=== PATIENT | female | born 1990 | race Caucasian/White ===

== ENCOUNTER 2019-05-27 21:17 | Emergency (ER) | payer MEDICAID ==
[2019-05-27 21:38] LABS: #Basophils 0.1 thou/uL (0.0-0.2); #Monocytes 0.7 thou/uL (0.11-0.59); #Neutrophils 8.2 thou/uL (1.40-6.50); %Basophils 0.5 % (0.0-1.0); %Eosinophils 0.2 % (0.0-10.0); %Lymphocytes 25.2 % (21.0-51.0); %Monocytes 5.5 % (0.0-10.0); %Neutrophils 68.6 % (42.0-75.0); Hemoglobin 14.1 g/dL (12.0-16.0); Mean Corpuscular HGB CONC 34.8 g/dL (32.0-36.0); Mean Corpuscular Hemoglobin 30.8 pg (27.0-31.0); Mean Corpuscular Volume 88.4 fL (78.0-98.0); Mean Platelet Volume 8.3 fL (7.4-10.4); Platelet Count 209 thou/uL (130-400); RBC Distribution Width 11.3 % (11.5-14.5); Red Blood Cell (RBC) Count 4.59 mill/uL (4.20-5.40); White Blood Cell (WBC) Count 11.9 thou/uL (4.8-10.8)
[2019-05-27] MEDS ORDERED: Acetaminophen 500 MG TAB ONE (23:29)
[2019-05-27 23:40] LABS: Bacteria/HPF None Seen HPF (None Seen); Bilirubin Negative (Negative); Blood, Urine 1+ (Negative); Clarity Clear (Clear); Glucose, Urine (Dipstick) Normal (Negative); Leukocyte Negative Leu/uL (Negative); Nitrite Negative (Negative); Protein, Urine (Dipstick) Negative (Neg-Trace); RBC/HPF 0-3 HPF (0-3); Squamous Epithelial 0-3 HPF (0-3); Urobilinogen Normal mg/dL (Less than 2); WBC/HPF 0-3 HPF (0-3)
[2019-05-27] MEDS ORDERED: Ondansetron ODT 8 MG TAB ONE (23:45)
--- NOTE | 2019-05-27 23:53 | ULT ---
PELVIC ULTRASOUND: HISTORY: Elevated beta hCG level of 98,990. Pelvic pain/pressure for one day with nausea and vomiting and vagi nal bleeding. TECHNIQUE: Multiple transabdominal sonographic images of the pelvis are obtained. FINDINGS: A fluid collection is seen in the endometrial canal, which does contain a pole. Cardiac Doppler does demonstrate heart tones with a heart rate of 169 beats per minute. A yolk sac is al so visualized. The crown-rump length measures 1.78 cm, which corresponds to a gestational age by ultr asound of 8 weeks and 2 days. There is a small, approximately 1 cm, subchorionic, hypoechoic area, which probably represents a smal l subchorionic hemorrhage. The ovaries are visualized bilaterally and have a normal sonographic appearance with flow documented in each ovary. No free fluid is seen in the cul-de-sac. IMPRESSION: 1. Very small subchorionic hemorrhage, measuring 1 cm. Continued followup is recommended. 2. Single intrauterine gestation with heart tones documented. Gestational age by measurement of the crown-rump length is 8 weeks and 2 days. POS: CHARISMA
== END 2019-05-28 00:36 | disposition home or self-care (01) ==
LOC: ERS 21:17
DX: O20.0 Threatened abortion (principal); O99.89 Other specified diseases and conditions complicating pregnancy, childbirth and the puerperium; R11.0 Nausea; O13.9 Gestational [pregnancy-induced] hypertension without significant proteinuria, unspecified trimester; Z3A.08 8 weeks gestation of pregnancy
CPT/HCPCS: 36415; 76856; 81003; 81015; 84702; 85025; 86900; 86901; 93976

== ENCOUNTER 2019-09-02 02:39 | Inpatient (IN) | payer OTHER, SELFPAY ==
[2019-09-02] MEDS ORDERED: hydrALAZINE 20 MG/ML VIAL SLOW IVP PRN ×3 (03:06→15:48)
[2019-09-02 03:33] LABS: Bacteria/HPF None Seen HPF (None Seen); Bilirubin Negative (Negative); Blood, Urine Negative (Negative); Clarity Clear (Clear); Glucose, Urine (Dipstick) Normal (Negative); Leukocyte Negative Leu/uL (Negative); Nitrite Negative (Negative); Protein, Urine (Dipstick) Negative (Neg-Trace); RBC/HPF 0-3 HPF (0-3); Squamous Epithelial None Seen HPF (0-3); Urobilinogen Normal mg/dL (Less than 2); WBC/HPF 0-3 HPF (0-3)
[2019-09-02] MEDS ORDERED: Morphine 10 MG/ML VIAL ONE (04:06)
[2019-09-02] MEDS ORDERED: Sodium Chloride 0.9% 200 ML ONE (04:15)
[2019-09-02] MEDS ORDERED: Morphine 10 MG/ML VIAL IM SCH (04:15)
[2019-09-02] MEDS ORDERED: Ondansetron PF 4 MG/2 ML Vial IVP SCH (04:15)
[2019-09-02] MEDS ORDERED: Morphine 10 MG/ML VIAL SLOW IVP SCH (04:15)
--- NOTE | 2019-09-02 05:27 | PRG ---
DATE OF SERVICE: 09/02/2019 PRIMARY OB: Dr. Shey Goetz. CHIEF COMPLAINT: Abdominal pains. HISTORY OF PRESENT ILLNESS: The patient is a 29-year-old with a G4, P2 with an intrauterine at 21 weeks and a day, followed by Dr. Cuenca, who is presenting to Labor and Delivery with abdominal pains that began yesterday as light and intermittent that have progressed to waking her up at night. She reports that she has felt the pain as frequently as every 5 to 6 minutes. She also reports that she has had a little bit of bloody show. Her past surgical history is significant for two LEEP procedures that she has had in the last couple of years since her last baby was born. The patient denies any recent fever, fall, headache, chest pain, shortness of breath, or chest pain. The patient does report some shortness of breath that she has, mainly difficulty catching her breath. Denies nausea, vomiting, diarrhea, constipation, hip problems, knee problems, or muscle weakness. Denies any new rashes. Reports that she gets bacterial vaginosis and urinary tract infections. She was last treated with metronidazole about 3 weeks ago. She denies any current discharge except for this little bit of brown discharge she has had in the last day. The patient denies any urinary urgency or frequency. PAST MEDICAL HISTORY: Significant for abnormal Pap smear. PAST SURGICAL HISTORY: She has had two LEEP procedures and 2 prior C-sections. ALLERGIES: NO KNOWN DRUG ALLERGIES. MEDICATIONS: vitamins. SOCIAL HISTORY: Denies drug, alcohol, or tobacco use. ALLERGIES: NO KNOWN DRUG ALLERGIES. OB LABS: Unavailable at the time of dictation. REVIEW OF SYSTEMS: Per HPI. PHYSICAL EXAMINATION: VITAL SIGNS: Blood pressure 133/82, heart rate of 95, respiratory rate of 16, and temperature 98.4. GENERAL: She appears to be in no acute distress. She is alert, oriented, cooperative, and pleasant to interact with. HEENT: Head is normocephalic and atraumatic. LUNGS: Clear to auscultation bilaterally. HEART: Has a regular rate and rhythm. ABDOMEN: Gravid, soft, and nontender. EXTREMITIES: Nontender, nonedematous. She has no CVA tenderness. No vertebral tenderness. No SI joint tenderness. PELVIC: Vulva is without masses, lesions, or erythema. Vagina is moist. She does have a little bit very minimal amount of old bloody show, mucousy. Cervix is visibly closed, difficult to identify due to her 2 prior procedures, but the cervical os is visible. On digital exam, the cervix is closed and feels to be firm. No presenting part palpable. heart tones that were unable to be found on Doppler. Bedside ultrasound, which was ordered for cervical length and placental site, confirmed that there were no heart tones. Fetus is measuring 18 weeks and 4 days by femur length, which is almost 3 weeks from her due date. BLOOD TYPE: Previous blood type shows A positive. ASSESSMENT AND PLAN: The patient is a 29-year-old female with an intrauterine at 21 weeks by gestational age, 18 weeks and 4 days by femur length without any heart tones. This unfortunate news has been shared with the patient and father of the baby. We have not discussed anything further than that at this point. We will discuss with the patient the options of proceeding with induction today , going home and preparing and following up with her primary OB. The patient is having some intermittent pains at this time, but no clear evidence of labor. addendum 0630 pt having more significant pains. concerned she is entering labor. Pt has expressed a desire to go home to see her daughter before proceeding with iol/ augmentation of labor. I have advised against it given the amount of pain she appears to be experiencing. Waiting on her decision before contacting Dr Goetz. Job ID: [id number] MTDD
[2019-09-02] MEDS ORDERED: NS / Oxytocin 40 units/1000ml 1,000 ML IV PRN (06:35)
[2019-09-02] MEDS ORDERED: Lidocaine 1% (PF) 30 ML VIAL SC PRN (06:35)
[2019-09-02] MEDS ORDERED: Butorphanol Tartrate 1 MG/ML VIAL SLOW IVP PRN (06:35)
[2019-09-02] MEDS ORDERED: Ondansetron PF 4 MG/2 ML Vial IVP PRN ×3 (06:35→15:48)
[2019-09-02] MEDS ORDERED: HYDROcodone/Acetaminophen 5/325 mg Tablet PO PRN (06:35)
[2019-09-02] MEDS ORDERED: Ibuprofen 800 MG TAB PO PRN (06:35)
[2019-09-02] MEDS ORDERED: Lactated Ringer's 1,000 ML IV SCH (06:45)
[2019-09-02 06:47] LABS: Hemoglobin 14.5 g/dL (12.0-16.0); Mean Corpuscular HGB CONC 34.7 g/dL (32.0-36.0); Mean Corpuscular Hemoglobin 32.4 pg (27.0-31.0); Mean Corpuscular Volume 93.3 fL (78.0-98.0); Mean Platelet Volume 8.5 fL (7.4-10.4); Platelet Count 191 thou/uL (130-400); RBC Distribution Width 11.7 % (11.5-14.5); Red Blood Cell (RBC) Count 4.47 mill/uL (4.20-5.40); White Blood Cell (WBC) Count 15.9 thou/uL (4.8-10.8)
[2019-09-02] MEDS ORDERED: Fentanyl 4 mcg/Bup 0.1% Cadd 100 ML ONE ×2 (07:26→13:02)
--- NOTE | 2019-09-02 07:39 | ULT ---
PRELIMINARY REPORT/[facility]/EMERGENCY AFTER HOURS PROCEDURE: Exam: Transabdominal OB ultrasound. History: HX: VAG BLEEDING AT 21WKS PREG. SEE NOTES ON LAST IMAGE. DR. OSMAN AT BEDSIDE. Comparison: None. Findings: Intrauterine is present. Estimated gestational age is 17 weeks and 4 days. Ther e is no cardiac activity. Cervix measures 1.7 cm in length. Impression: demise. ELECTRONICALLY SIGNED BY: Aminata Bae MD Sep 02, 2019 5:11:55 AM CDT This report is intended for review by the ordering physician only, in accordance of law. If you recei ve this report in error, please call [facility] at [phone]. FINAL REPORT EMERGENCY AFTER HOURS LIMITED TRANSABDOMINAL OB ULTRASOUND: I agree with the preliminary report given by [facility]. POS: FINESSE
[2019-09-02] MEDS: Fentanyl 4 mcg/Bupivacaine 0.1% Cassette 100 ML EPIDURAL SCH ×2 (07:51→13:08)
[2019-09-02 07:55] VITALS: BMI 29.0
[2019-09-02] MEDS ORDERED: EPHEDRINE 25 MG/5 ML SYRINGE SLOW IVP PRN (07:56)
[2019-09-02] MEDS ORDERED: diphenhydrAMINE 50 MG/ML VIAL IVP PRN (07:56)
[2019-09-02] MEDS ORDERED: Promethazine HCl 25 MG/ML VIAL IM PRN ×2 (07:56→15:48)
[2019-09-02] MEDS ORDERED: Naloxone HCl 0.4 mg/ml Vial IVP PRN ×2 (07:56)
[2019-09-02] MEDS ORDERED: Lactated Ringer's 500 ML IV PRN (07:56)
[2019-09-02] MEDS ORDERED: Acetaminophen 325 MG TAB PO PRN (07:56)
[2019-09-02] MEDS ORDERED: Communication Order-Pharmacy FS SCH (08:00)
[2019-09-02] MEDS: Misoprostol 100 MCG TAB VAG SCH ×2 (08:49→12:23)
[2019-09-02] MEDS: Lactated Ringer's 1,000 ML IV SCH ×2 (09:47→11:35)
[2019-09-02] MEDS ORDERED: Misoprostol 200 MCG TAB VAG SCH (15:00)
[2019-09-02] MEDS ORDERED: Misoprostol 200 MCG TAB ONE (15:09)
--- NOTE | 2019-09-02 15:47 | PDOC.OPDEL ---
OB Operative/Delivery Note Delivery Dr/Surgeon: Ricky Pre-Delivery Diagnosis: medically indicated induction Procedure/Post Delivery Dx: spontaneous vaginal delivery Weeks gestation: 21 Anesthesia: epidural - Findings A Sex: male Weight: 2.998 oz - 1 min: 0 - 5 min: 0 - Additional Findings/Plan Placenta delivered: manual removal Repaired Obstetrical Laceration: none Estimated blood loss: 620ml Compilations/Other Findings: Appears approximately 18 weeks, no gross abnormalities Placenta removed manually due to bleeding and pain. Appears intact. Post delivery plan: routine recovery
[2019-09-02] MEDS ORDERED: Zolpidem Tartrate 5 MG TAB PO PRN (15:48)
[2019-09-02] MEDS ORDERED: Varicella virus, LIVE 0.5 ML VIAL SC ONE (15:48)
[2019-09-02] MEDS ORDERED: Misoprostol 200 MCG TAB VAG PRN (15:48)
[2019-09-02] MEDS ORDERED: Preparation H Ointment 28 GM TUBE PR PRN (15:48)
[2019-09-02] MEDS ORDERED: Bisacodyl 10 MG SUPP PR PRN (15:48)
[2019-09-02] MEDS ORDERED: Measles/Mumps/Rubella 10 MCG/0.5 ML VIAL SC ONE (15:48)
[2019-09-02] MEDS ORDERED: diphenhydrAMINE 25 MG CAP PO PRN (15:48)
[2019-09-02] MEDS ORDERED: Adacel (T-DAP) 0.5 ML SYRINGE IM ONE (15:48)
[2019-09-02] MEDS ORDERED: Milk Of Magnesia 30 ML UDCUP PO PRN (15:48)
[2019-09-02] MEDS ORDERED: Methylergonovine 0.2 MG/ML VIAL IM PRN (15:48)
[2019-09-02] MEDS ORDERED: Benzocaine-Menthol 82.5 ML CAN TOP PRN (15:48)
[2019-09-02] MEDS ORDERED: NS / Oxytocin 40 units/1000ml 1,000 ML IV SCH (16:00)
[2019-09-02] MEDS ORDERED: Ferrous Sulfate 325 MG TAB PO SCH (17:00)
[2019-09-02] MEDS ORDERED: Docusate Calcium (SURFAK) 240 MG CAP PO SCH (21:00)
[2019-09-02] MEDS ORDERED: Ibuprofen 800 MG TAB PO SCH (22:00)
[2019-09-03] MEDS ORDERED: Prenatal Vitamin 1 TAB PO SCH (09:00)
== END 2019-09-02 19:45 | disposition home or self-care (01) | DRG 807 ==
LOC: L&D/OP 02:39 → L&D 07:27
PROVIDERS: ADMIT Obstetrics & Gynecology; ATTEND Obstetrics & Gynecology
PROC: 10E0XZZ Delivery of Products of Conception, External Approach (ICD-10-PCS; principal; 2019-09-02)
DX: O36.4XX0 Maternal care for intrauterine death, not applicable or unspecified (principal); Z37.1 Single stillbirth; Z3A.21 21 weeks gestation of pregnancy
CPT/HCPCS: 36415; 76815; 81001; 85027; 86850; 86900; 86901; J0595; J2270; J2405; J3490

== ENCOUNTER 2019-09-06 14:21 | Emergency (ER) | payer OTHER ==
[2019-09-06] MEDS ORDERED: Lorazepam 2 MG/ML VIAL ONE ×3 (14:38→17:13)
[2019-09-06] MEDS ORDERED: Ondansetron PF 4 MG/2 ML Vial ONE (14:38)
[2019-09-06] MEDS ORDERED: Fentanyl 100 MCG/2 ML VIAL ONE (14:46)
[2019-09-06 14:52] LABS: #Basophils 0.1 thou/uL (0.0-0.2); #Eosinphils 0.1 thou/uL (0.0-0.7); #Lymphocytes 3.5 thou/uL (1.20-3.40); #Monocytes 0.5 thou/uL (0.11-0.59); #Neutrophils 6.4 thou/uL (1.40-6.50); %Basophils 1.3 % (0.0-1.0); %Eosinophils 0.7 % (0.0-10.0); %Lymphocytes 33.2 % (21.0-51.0); %Monocytes 4.5 % (0.0-10.0); %Neutrophils 60.3 % (42.0-75.0); Hemoglobin 12.1 g/dL (12.0-16.0); Mean Corpuscular HGB CONC 34.5 g/dL (32.0-36.0); Mean Corpuscular Hemoglobin 32.1 pg (27.0-31.0); Mean Platelet Volume 7.7 fL (7.4-10.4); Platelet Count 250 thou/uL (130-400); RBC Distribution Width 11.2 % (11.5-14.5); Red Blood Cell (RBC) Count 3.75 mill/uL (4.20-5.40); White Blood Cell (WBC) Count 10.5 thou/uL (4.8-10.8)
[2019-09-06 15:03] LABS: ALT (SGPT) 12 U/L (8-55); AST (SGOT) 14 U/L (5-34); Albumin 4.2 g/dL (3.5-5.0); Alkaline Phosphatase 56 U/L (40-110); Anion Gap 15 mmol/L (10-20); BUN (Urea Nitrogen) 9 mg/dL (7.0-18.7); Bilirubin, Total 0.2 mg/dL (0.2-1.2); Calc. Creatinine Clearance 0 mL/min (70-130); Calcium 9.2 mg/dL (7.8-10.44); Carbon Dioxide 19 mmol/L (22-29); Chloride 111 mmol/L (98-107); Estimated GFR-MDRD Greater than 90; Glucose 110 mg/dL (70-105); Lipase 23 U/L (8-78); Protein, Total 7.2 g/dL (6.0-8.3); Sodium 141 mmol/L (136-145)
[2019-09-06 15:21] LABS: Bacteria/HPF None Seen HPF (None Seen); Bilirubin Negative (Negative); Blood, Urine 2+ (Negative); Clarity Clear (Clear); Glucose, Urine (Dipstick) Normal (Negative); Leukocyte Negative Leu/uL (Negative); Nitrite Negative (Negative); Protein, Urine (Dipstick) Negative (Neg-Trace); Squamous Epithelial 0-3 HPF (0-3); Urobilinogen Normal mg/dL (Less than 2); WBC/HPF 0-3 HPF (0-3)
[2019-09-06] MEDS ORDERED: Morphine 4 MG/ML VIAL ONE ×2 (15:36→16:30)
--- NOTE | 2019-09-06 15:57 | ULT ---
ULTRASOUND PELVIS DOPPLER DUPLEX: 09/06/19 at 3:04 p.m. HISTORY: 29-year-old female status post spontaneous at six month gestation approximately five days ag o, presents with lower abdominal/pelvic pain. TECHNIQUE: Transabdominal transducer used to evaluate intrapelvic contents using lopez scale, color flow and spec tral analysis. A transvaginal ultrasound was not performed, because of patient's degree of pain. FINDINGS: Uterus measures approximately 9 x 7 x 10.5 cm. Endometrial stripe is difficult to identify with certa inty. The estimate clerk has measured it as 1.8 cm (18 mm). Peripheral myometrial blood flow demonstrated by Doppler. Neither the right nor left ovary could be visualized. No significant free fluid is identified around the uterus, including in the cul-de-sac. IMPRESSION: 1. Ovaries not visualized. 2. Enlarged, uterus. 3. No free fluid identified. POS: JIN
--- NOTE | 2019-09-06 18:40 | ULT ---
ULTRASOUND PELVIC TRANSVAGINAL: 09/06/19 HISTORY: Pain. Miscarriage. COMPARISON: Ultrasound same day. FINDINGS: Uterus is enlarged measuring 11.8 x 5.4 x 8.5 cm. The endometrial thickness is approximately 1.7 cm. Right ovary measures 3 x 1.6 x 1.3 cm. Adequate vascular flow. Left ovary is not visualized. There is minimal debris within the endometrial cavity but does not have significant vascular flow. IMPRESSION: Nonvisualization of the left ovary. Normal appearance right ovary. POS: HOME
[2019-09-06] MEDS ORDERED: Ketorolac Tromethamine 30 MG/ML VIAL ONE (19:04)
== END 2019-09-06 19:20 | disposition home or self-care (01) ==
LOC: ERS 14:21
DX: R10.30 Lower abdominal pain, unspecified (principal); R14.0 Abdominal distension (gaseous)
CPT/HCPCS: 76856; 76857; 80053; 81003; 81015; 83605; 83690; 85025; 93005; 96361; 96374; 96375; 96376; J1885; J2060; J2270; J2405; J3010

== ENCOUNTER 2019-09-06 23:13 | Observation (INO) | payer OTHER ==
[~2019-09-06 23:13] MED LIST: Iopamidol 370 76% 100 ML VIAL ONE
[2019-09-07] MEDS ORDERED: Lorazepam 2 MG/ML VIAL SLOW IVP PRN (00:40)
[2019-09-07 00:51] VITALS: TEMP 98; BMI 29.2
[2019-09-07] MEDS ORDERED: Ketorolac Tromethamine 30 MG/ML VIAL IVP SCH (01:15)
[2019-09-07] MEDS ORDERED: Promethazine HCl 25 MG in Sodium Chloride 0.9% 50 ML IVPB PRN (01:29)
[2019-09-07] MEDS ORDERED: Calcium Carbonate 500 MG ChewTAB PO PRN (01:30)
[2019-09-07] MEDS ORDERED: Ondansetron PF 4 MG/2 ML Vial IVP PRN (01:30)
[2019-09-07] MEDS ORDERED: Ondansetron ODT 4 MG TAB PO PRN (01:30)
[2019-09-07] MEDS ORDERED: Acetaminophen 500 MG TAB PO PRN (01:35)
--- NOTE | 2019-09-07 01:41 | PDOC.BPN ---
- Brief Progress Note CT results with no obvious source of acute process. CBC, CMP, UA all unremarkable. Vitals stable. Pain likely worsened by grieving state. I offered to give a dose of ativan prior to a dose of toradol, and the patient became hysterical, stating that she is in too much pain and she just wants to be able to take a breath. "Those medications do nothing" for her and the medications she received in the ER earlier today barely made the pain bearable and she wanted to "sign the papers" to go home. After evaluation of what she received in the ER, I noted she received a total of 8mg morphine, 3mg ativan, 75mcg of fentanyl, and 30mg of toradol. After a lengthy discussion stating that if she is in that much pain, I would prefer to keep her for observation and would be willing to try a dose of something different. She agrees to stay for further observation. At this point, she will be placed on obs and given a single dose of demerol and phenergan for pain to allow her to rest. She will also get a dose of Ativan. We will continue to monitor overnight and reassess her CBC and exam in the morning.
[2019-09-07] MEDS ORDERED: Promethazine HCl 25 MG in Sodium Chloride 0.9% 50 ML IVPB SCH (02:00)
--- NOTE | 2019-09-07 05:51 | HP ---
CHIEF COMPLAINT: Abdominal pain. HISTORY OF PRESENT ILLNESS: A 29-year-old G4, P2-0-1-2, who is 4 days status post 18-week miscarriage. She reports a sudden onset of diffuse abdominal pain starting after the of her fetus today. She was seen in the emergency department and had an ultrasound, which showed normal changes in the uterus, a normal right ovary and nonvisualized left ovary with no free fluid. She was offered a CT scan at that time, but opted to go home with pain medicine and come back if it worsened. She reports the pain did worsen, so she came back and was sent here for evaluation. She denies any changes in bowel habits, or urination. PAST SURGICAL HISTORY: Prior LEEP x2 and 2 prior C-sections. ALLERGIES: NO KNOWN DRUG ALLERGIES. MEDICATIONS: 1. vitamin. 2. Ibuprofen. SOCIAL HISTORY: Negative for tobacco, alcohol, or drug abuse. PHYSICAL EXAMINATION: VITAL SIGNS: Blood pressure 146/85, pulse 86, temperature 98.0, respiratory rate 14, and 100% on room air. GENERAL: Awake, alert, sobbing, and appears very uncomfortable. CHEST: Nonlabored. ABDOMEN: Diffusely tender to palpation with voluntary guarding but no rebound. No masses palpated. PELVIC: Mild discomfort on bimanual exam, limited due to patient discomfort. IMAGING: Ultrasound earlier today revealed a 1.7 cm endometrial stripe. No retained products of conception. Right ovary normal appearing with adequate vascular flow. Left ovary not visualized. CT scan, formal result pending, but unofficially unremarkable. LABORATORIES: WBC 10.5, hemoglobin 12.1, hematocrit 34.9, platelets 250,000, and neutrophils 60.3%. Lactic acid 1.3. AST 14, ALT 12, and lipase 23. ASSESSMENT/PLAN: A 29-year-old G4, P2-0-1-2 four days status post 18 week in utero with no findings on imaging to support an acute process. She remains afebrile and has a normal white count with no left shift. It is possible that her response is secondary grieving and anxiety after the of her fetus today. She will be given 1 mg of Ativan and we will continue to monitor at this time. Job ID: [id number] [facility]
[2019-09-07 06:41] VITALS: BP 148/85
--- NOTE | 2019-09-07 08:04 | CT ---
PRELIMINARY REPORT/[facility]/EMERGENCY AFTER HOURS PROCEDURE: EXAM: CT Abdomen and Pelvis with Intravenous Contrast CLINICAL HISTORY: PT GAVE ON MONDAY, BABY . PT REPORTS CRAMPING, BLEEDING, AND SEVERE LOWER ABDOMINAL PAIN TECHNIQUE: Axial computed tomography images of the abdomen and pelvis with intravenous contrast. CONTRAST: With; ISOVUE 370,100mL COMPARISON: None provided. FINDINGS: LUNG BASES: No basilar airspace consolidation or pleural effusion. LIVER: Unremarkable. GALLBLADDER AND BILE DUCTS: Unremarkable. No calcified stone. No ductal dilation. PANCREAS: Unremarkable. SPLEEN: Unremarkable. ADRENAL GLANDS: Unremarkable. KIDNEYS, URETERS, AND BLADDER: Unremarkable. No hydronephrosis or nephrolithiasis. No ureteral or rodri dder calculi. STOMACH AND BOWEL: No obstruction. No wall thickening. No CT evidence of colitis or acute diverticuli tis. APPENDIX: The appendix appears normal. PERITONEUM: No free fluid. No free air. LYMPH NODES: No lymphadenopathy. REPRODUCTIVE: Small amount of fluid within the uterine cavity. VASCULATURE: No aortic aneurysm. BONES: No fracture or suspicious osseous abnormality. ABDOMINAL WALL AND SOFT TISSUES: Unremarkable. IMPRESSION: Small amount of fluid within the uterine cavity. ELECTRONICALLY SIGNED BY: Eduar Oliveros MD Sep 07, 2019 12:48:49 AM CDT This report is intended for review by the ordering physician only, in accordance of law. If you recei ve this report in error, please call [facility] at [phone]. FINAL REPORT ABDOMEN AND PELVIC CT SCAN WITH IV CONTRAST EMERGENCY AFTER HOURS EXAM DATE: 09-07-2019 TIME: 12:33 A.M. FINDINGS: Enlarged recent post uterus with slightly prominent endometrial cavity. Several borderline siz ed fluid filled loops of small bowel are noted but no evidence for a bowel obstruction. No abnormal f luid collection or other acute process in the abdomen or pelvis. Normal appearing appendix. IMPRESSION: Post-operative recent changes. No other acute process.
[2019-09-07 08:47] LABS: Hemoglobin 10.7 g/dL (12.0-16.0); Mean Corpuscular HGB CONC 34.2 g/dL (32.0-36.0); Mean Corpuscular Volume 93.7 fL (78.0-98.0); Mean Platelet Volume 7.6 fL (7.4-10.4); Platelet Count 180 thou/uL (130-400); RBC Distribution Width 11.2 % (11.5-14.5); Red Blood Cell (RBC) Count 3.35 mill/uL (4.20-5.40); White Blood Cell (WBC) Count 7.4 thou/uL (4.8-10.8)
--- NOTE | 2019-09-07 10:09 | PDOC.EVN ---
Event Note - Event Note Event Note: OB oncall lab check: As per my check out this am at 0800, I was tasked with following up the lab result from this AM CBC. This CXBC was normal. If labs were normal, that was to result in DC to home as per Dr García who saw the patient prior to my hand-off for shift. I have reviewed the lab now with Ella (RN). CBC ok, OK for DC as planned. This was lab check only as I did not see her at bedside as I am prepping for a CSection at this time.
[2019-09-07 10:19] LABS: Lymphocytes 24 % (21-51); MDiff Complete? YES; Monocytes 12 % (0-10); Neutrophil 63 % (42-75); Platelet Morphology Comment Appears Adequate
--- NOTE | 2019-09-07 10:29 | DIS ---
DATE OF ADMISSION: 09/07/2019 DATE OF DISCHARGE: 09/07/2019 The admitting physician on 09/07/[address] Frannie García. HOSPITAL COURSE: In brief, this patient was admitted on 09/07/2019 with a complaint of abdominal pain. The patient is a 29-year-old, G4, P 2-0-1-2, who is about 4 days' status post an 18-week miscarriage. She had a vaginal delivery of that , and she came in after the of the child with abdominal pain, NOS. It was thought that this was either a new organic finding or could be a conversion reaction due to the grief response. She received Ativan for agitation control. She did have a CT scan performed on 09/06/2019, which did not reveal any abnormal changes. It is important to note that the impression on that CT shows "postoperative recent changes." However, the patient did not have a . She had a vaginal delivery. The patient was evaluated by Dr. García, who felt that there was no new organic etiology of the patient's pain and this likely represented abnormal manifestation of a grief reaction/possible conversion syndrome. She did discuss with the patient that she would check another CBC on the morning of the (which I have checked) and it was normal. The plan was to discharge her home. I have checked the CBC. I evaluated the CBC at 10 in the morning on 09/06 and noting that it was normal. I resumed the plan for discharge of her home. FINAL DIAGNOSES: The post admission final diagnosis includes: 1. Status post recent second trimester delivery. 2. Possible grief reaction. 3. Possible conversion reaction. 4. She has her followup with her provider as scheduled. It is important to note that I did not evaluate the patient. I did not evaluate the patient this admission. I am doing the discharge dictation as I ordered the discharge after confirming a normal CBC. I did not evaluate the patient as I felt that it would not add anything clinically to the evaluation already performed, and the patient was clinically well and stable. Job ID: [id number] MTDD
== END 2019-09-07 11:05 | disposition home health service (06) ==
LOC: ERS 23:13 → L&D/OP 23:47 → L&D 09-07 06:28
PROVIDERS: ADMIT Student in an Organized Health Care Education/Training Program; ATTEND Student in an Organized Health Care Education/Training Program
DX: R10.9 Unspecified abdominal pain (principal)
CPT/HCPCS: 36415; 74177; 85007; 85027; 96374; 96375; 99285; G0378; J2175; J2550; Q9967

== ENCOUNTER 2019-12-05 18:11 | Emergency (ER) | payer OTHER ==
[2019-12-05 18:44] LABS: #Basophils 0.1 thou/uL (0.0-0.2); #Lymphocytes 2.4 thou/uL (1.20-3.40); #Monocytes 0.4 thou/uL (0.11-0.59); #Neutrophils 7.3 thou/uL (1.40-6.50); %Basophils 0.5 % (0.0-1.0); %Eosinophils 0.3 % (0.0-10.0); %Lymphocytes 23.4 % (21.0-51.0); %Monocytes 4.2 % (0.0-10.0); %Neutrophils 71.5 % (42.0-75.0); Hemoglobin 13.6 g/dL (12.0-16.0); Mean Corpuscular HGB CONC 33.5 g/dL (32.0-36.0); Mean Corpuscular Hemoglobin 29.9 pg (27.0-31.0); Mean Corpuscular Volume 89.3 fL (78.0-98.0); Mean Platelet Volume 8.4 fL (7.4-10.4); Platelet Count 203 thou/uL (130-400); RBC Distribution Width 12.1 % (11.5-14.5); Red Blood Cell (RBC) Count 4.57 mill/uL (4.20-5.40); White Blood Cell (WBC) Count 10.2 thou/uL (4.8-10.8)
[2019-12-05 19:29] LABS: Bilirubin Negative (Negative); Blood, Urine Negative (Negative); Clarity Clear (Clear); Glucose, Urine (Dipstick) Normal (Negative); Ketone, Urine Negative (Negative); Leukocyte Negative Leu/uL (Negative); Nitrite Negative (Negative); Protein, Urine (Dipstick) Negative (Neg-Trace); Specific Gravity, Urine 1.008 (1.002-1.036); Urobilinogen Normal mg/dL (Less than 2); pH, Urine 5.5 (5.0-9.0)
--- NOTE | 2019-12-05 21:06 | ULT ---
PELVIC ULTRASOUND: 12/05/19 Transabdominal and endovaginal ultrasound of pelvis performed. INDICATIONS: Follow-up pelvic ultrasound from 12/02/19. That exam revealed a gestational sac and yolk sac without f etal pole. FINDINGS: Gestational sac again noted. Yolk sac is identified. No pole is identified. No heart tone or motion seen at this time. Gestational age by ultrasound measurements would be 6 week, 2 days. Both ovaries are identified. Color Doppler and spectral analysis demonstrates blood flow to both ovar ies. There are two right ovarian cysts with the largest measuring approximately 2.5 to 3.0 cm. IMPRESSION: Gestational sac and yolk sac again identified. No evidence of pole. Correlate with serial HCG l evels to assess viability. POS: AGW
[2019-12-05] MEDS ORDERED: Acetaminophen 500 MG TAB ONE (21:24)
== END 2019-12-05 21:57 | disposition home or self-care (01) ==
LOC: ERS 18:11
DX: O20.0 Threatened abortion (principal); O99.341 Other mental disorders complicating pregnancy, first trimester; F32.9 Major depressive disorder, single episode, unspecified; Z3A.01 Less than 8 weeks gestation of pregnancy
CPT/HCPCS: 36415; 76856; 81003; 84702; 85025; 86900; 86901

== ENCOUNTER 2020-01-13 11:36 | Emergency (ER) | payer OTHER ==
[2020-01-13] MEDS ORDERED: Ondansetron ODT 4 MG TAB ONE (12:05)
[2020-01-13] MEDS ORDERED: Ondansetron PF 4 MG/2 ML Vial ONE (12:07)
[2020-01-13] MEDS ORDERED: Acetaminophen 500 MG TAB ONE (12:50)
[2020-01-13 12:57] LABS: #Lymphocytes 1.8 thou/uL (1.20-3.40); #Monocytes 0.4 thou/uL (0.11-0.59); #Neutrophils 7.9 thou/uL (1.40-6.50); %Basophils 0.1 % (0.0-1.0); %Eosinophils 0.3 % (0.0-10.0); %Lymphocytes 17.9 % (21.0-51.0); %Monocytes 3.9 % (0.0-10.0); %Neutrophils 77.9 % (42.0-75.0); Hemoglobin 13.5 g/dL (12.0-16.0); Mean Corpuscular HGB CONC 35.2 g/dL (32.0-36.0); Mean Corpuscular Hemoglobin 31.2 pg (27.0-31.0); Mean Corpuscular Volume 88.8 fL (78.0-98.0); Platelet Count 189 thou/uL (130-400); RBC Distribution Width 12.8 % (11.5-14.5); Red Blood Cell (RBC) Count 4.31 mill/uL (4.20-5.40); White Blood Cell (WBC) Count 10.1 thou/uL (4.8-10.8)
[2020-01-13 13:27] LABS: ALT (SGPT) Less than 7 U/L (8-55); AST (SGOT) 11 U/L (5-34); Albumin 2.9 g/dL (3.5-5.0); Alkaline Phosphatase 40 U/L (40-110); Anion Gap 10 mmol/L (10-20); BUN (Urea Nitrogen) Less than 4 mg/dL (7.0-18.7); Bilirubin, Total 0.2 mg/dL (0.2-1.2); Calc. Creatinine Clearance 0 mL/min (70-130); Calcium 6.7 mg/dL (7.8-10.44); Carbon Dioxide 17 mmol/L (22-29); Chloride 116 mmol/L (98-107); Estimated GFR-MDRD Greater than 90; Globulin 2.2 g/dL (2.4-3.5); Glucose 74 mg/dL (70-105); Protein, Total 5.1 g/dL (6.0-8.3); Sodium 140 mmol/L (136-145)
[2020-01-13 13:43] LABS: Potassium 2.9 mmol/L (3.5-5.1)
[2020-01-13 13:53] LABS: Bilirubin Negative (Negative); Blood, Urine Negative (Negative); Clarity Clear (Clear); Glucose, Urine (Dipstick) Normal (Negative); Ketone, Urine Negative (Negative); Leukocyte Negative Leu/uL (Negative); Nitrite Negative (Negative); Protein, Urine (Dipstick) Negative (Neg-Trace); Specific Gravity, Urine 1.006 (1.002-1.036); Urobilinogen Normal mg/dL (Less than 2)
--- NOTE | 2020-01-13 13:55 | ULT ---
PELVIC ULTRASOUND WITH SALEH SCALE AND COLOR FLOW AND SPECTRAL DOPPLER IMAGING: Date: 01/13/2020 HISTORY: Abdominal cramping and vaginal bleeding. FINDINGS: Uterus measures 13.6 x 10.3 x 6.8 cm. Right ovary measures 5.2 x 4.6 x 3.4 cm. Left ovary is not visualized. There is a 4.1 x 2.8 x 2.7 cm cyst arising from the right ovary. Flow is demonstrated through the right ovary. A single, live intrauterine gestation is seen, with measurements corresponding to an estimated gestat ional age of 12 weeks and 6 days and RAMONE at 07/22/2020. The crown-rump length measures 6.41 cm. The heart rate measures 160 beats/minute. There is suggestion of a small amount of subchorionic hemorrhage. An anterior placenta is present with partial placenta previa, with placenta tip incompletely covering the internal os. IMPRESSION: 1. Single, live intrauterine of 12 weeks and 5 days estimated gestational age, and RAMONE at 07/22/2020. 2. Probable small subchorionic hemorrhage. 3. Partial placenta previa. POS: MZA
[2020-01-14 16:01] LABS: SARS-CoV-2 MS2 Positive; SARS-CoV-2 N Gene Negative; SARS-CoV-2 S Gene Negative; SARS-CoV-2 by NAA Not Detected (NotDetected); SARS-CoV-2 orf1ab Negative
== END 2020-01-13 15:05 | disposition home or self-care (01) ==
LOC: ERS 11:36
DX: O21.9 Vomiting of pregnancy, unspecified (principal); O99.281 Endocrine, nutritional and metabolic diseases complicating pregnancy, first trimester; O99.341 Other mental disorders complicating pregnancy, first trimester; F32.9 Major depressive disorder, single episode, unspecified; Z3A.12 12 weeks gestation of pregnancy
CPT/HCPCS: 76856; 80053; 81003; 85025; 87635; 96361; 96374; J2405; Q0162; U0003

== ENCOUNTER 2020-02-11 14:59 | Observation (INO) | payer OTHER ==
[~2020-02-11 14:59] MED LIST changes: -Iopamidol 370 76% 100 ML VIAL ONE; +Iopamidol-370 76% 500 ML 1 ML ONE
[2020-02-11 15:40] LABS: #Lymphocytes 2.3 thou/uL (1.20-3.40); #Monocytes 0.5 thou/uL (0.11-0.59); #Neutrophils 8.7 thou/uL (1.40-6.50); %Basophils 0.3 % (0.0-1.0); %Eosinophils 0.3 % (0.0-10.0); %Lymphocytes 19.8 % (21.0-51.0); %Neutrophils 75.5 % (42.0-75.0); Hemoglobin 13.5 g/dL (12.0-16.0); Mean Corpuscular HGB CONC 34.2 g/dL (32.0-36.0); Mean Corpuscular Hemoglobin 30.8 pg (27.0-31.0); Mean Corpuscular Volume 90.1 fL (78.0-98.0); Mean Platelet Volume 8.1 fL (7.4-10.4); Platelet Count 202 thou/uL (130-400); RBC Distribution Width 12.6 % (11.5-14.5); Red Blood Cell (RBC) Count 4.39 mill/uL (4.20-5.40); White Blood Cell (WBC) Count 11.6 thou/uL (4.8-10.8)
[2020-02-11 16:01] LABS: ALT (SGPT) 10 U/L (8-55); AST (SGOT) 13 U/L (5-34); Albumin 3.9 g/dL (3.5-5.0); Alkaline Phosphatase 52 U/L (40-110); Anion Gap 13 mmol/L (10-20); BUN (Urea Nitrogen) 5 mg/dL (7.0-18.7); Bilirubin, Total 0.2 mg/dL (0.2-1.2); Calc. Creatinine Clearance 0 mL/min (70-130); Carbon Dioxide 17 mmol/L (22-29); Chloride 109 mmol/L (98-107); Estimated GFR-MDRD Greater than 90; Glucose 100 mg/dL (70-105); Potassium 3.8 mmol/L (3.5-5.1); Protein, Total 6.9 g/dL (6.0-8.3); Sodium 135 mmol/L (136-145)
--- NOTE | 2020-02-11 16:08 | ULT ---
EXAM: OB ultrasound COMPARISON: 01/13/2020 HISTORY: Left lower quadrant abdominal pain in a patient with positive . TECHNIQUE: Multiplanar grayscale and color Doppler transabdominal sonographic images are obtained. FINDINGS: There is a single intrauterine gestation in breech presentation. Cardiac Doppler demonstrat es heart tones with a heart rate of 144 beats per minute. The placenta is located anteriorly without evidence of placenta previa. There subjectively, there is a normal amount of amnio tic fluid. The cervical length based on transabdominal imaging measures 3.5 centimeters. biometry measurements: BPD 3.21 cm -- 16 weeks HC 12.56 cm -- 16 weeks 2 days AC 11.27 cm -- 17 weeks 1 day FL 2.25 cm -- 16 weeks 5 days The estimated gestational age by ultrasound is 16 weeks 2 days with an RAMONE on07/26/2020. Gestational ag e by the last menstrual period is 16 weeks 3 days. The estimated weight by ultrasound is 171 g (6 ounces). This represents 70 percentile for weight. anatomical structures are not well evaluated on this examination due to early intrauterine gest ational age. There has been interval growth when compared to the prior exam. There is limited evaluation of the adnexal regions due to shadowing from bowel gas. Ovaries are unabl e to be visualized. Imaging left lower quadrant was performed in region of pain, again there is limited evaluation due to shadowing from bowel gas. IMPRESSION: 1. Single intrauterine gestation in breech presentation with heart tones documented. Estimated gestational age by ultrasound is 16 weeks 2 days with RAMONE on 07/26/2020. 2. Estimated weight is 171 g (6 ounces). 3. Adnexal regions and left lower quadrant in region of patient's pain are not well assessed due to s hadowing from bowel gas.
[2020-02-11 16:17] LABS: Bilirubin Negative (Negative); Blood, Urine Negative (Negative); Clarity Clear (Clear); Glucose, Urine (Dipstick) Normal (Negative); Ketone, Urine Negative (Negative); Leukocyte Negative Leu/uL (Negative); Nitrite Negative (Negative); Protein, Urine (Dipstick) Negative (Neg-Trace); Specific Gravity, Urine 1.007 (1.002-1.036); Urobilinogen Normal mg/dL (Less than 2)
[2020-02-11] MEDS ORDERED: Morphine 4 MG/ML VIAL ONE ×3 (17:01→22:34)
[2020-02-11] MEDS ORDERED: Ondansetron PF 4 MG/2 ML Vial ONE (17:28)
[2020-02-11] MEDS ORDERED: Fentanyl 100 MCG/2 ML VIAL ONE ×3 (18:08→23:59)
[2020-02-11] MEDS ORDERED: Lorazepam 2 MG/ML VIAL ONE (20:18)
--- NOTE | 2020-02-11 21:21 | CT ---
CT ABDOMEN AND PELVIS WITH IV CONTRAST: 02/11/20 PROVIDED CLINICAL HISTORY: Left lower quadrant tenderness with guarding. FINDINGS: Comparison 09/07/19. The visualized lung bases are free of significant opacity. The liver, spleen, pancreas, kidneys, and adrenal glands demonstrate an unremarkable CT appearance. There is no bowel dilatation, inflammatory fat stranding, free fluid or free air apparent. The append ix appears normal. The regional major vascular structures appear unremarkable. Gravid uterus is noted. The osseous struc tures demonstrate no concerning lytic or blastic lesions. IMPRESSION: No evidence for an acute process. POS: CELESTINO
[2020-02-11] MEDS ORDERED: diphenhydrAMINE 50 MG/ML VIAL ONE (23:59)
--- NOTE | 2020-02-12 00:27 | PDOC.FPRHP ---
- History of Present Illness Chief Complaint: Abdominal pain History of Present Illness: Patient is a 29 yo who presents at 16.3 (16.4 at time of note) wga by LMP c/w first trimester US who presents to the ED for abdominal pain. The patient reports that the pain began Monday night. It originally improved with rest but become worse throughout the day on Monday (02/10). She reports that she attempted taking tylenol and laying down without any relief. Due to a recent loss at 21 wga in August, she decided to come to the hospital. Patient reports history of kidney stones in prior pregnancies. Patient endorses N/V, pain with urination. Reports that she noticed some blood with wiping that she believes is coming from her urethra. Of note, patient has recently finished antibiotic course for recently diagnosed BV. Denies fever/chills, diarrhea/constipation, headache. ED Course: CBC, CMP, UA, pelvic US, & pelvic CT withing normal limits. Adnexa not able to be assessed during US due to presence of gas. 8mg of IV morphine, 100mcg IV fentanyl, 8mg of Zofran Given fentanyl and benadryl during admission process - Allergies/Adverse Reactions Allergies Allergy/AdvReac Type Severity Reaction Status Date / Time No Known Allergies Allergy Verified 09/07/19 00:51 - Home Medications Medication Instructions Recorded Confirmed Type Acetaminophen [Tylenol Regular 650 mg PO Q4H PRN tab 09/02/19 Rx Strength] Ibuprofen [Motrin] 800 mg PO Q8HR PRN #30 tab 09/02/19 09/07/19 Rx Terbinafine [LamISIL] 1 tab PO DAILY 09/02/19 09/07/19 History Sertraline HCl 1 mg PO QAM 09/07/19 09/07/19 History - History PMHx: Depression/anxiety, CASSI III PSHx: x2, Leep x2, cone biopsy, humeral fracture repair FHx: mother - HTN, unknown heart condition Social: denies tobacco, alcohol, drug use; lives with and two children - Review of Systems General: reports: weight/appetite/sleep changes. denies: fever/chills Eyes: denies: eye pain, vision changes ENT: denies: nasal congestion, rhinorrhea Respiratory: denies: cough, congestion, shortness of breath Cardiovascular: denies: chest pain, edema Gastrointestinal: reports: nausea, vomiting, abdominal pain. denies: diarrhea, constipation Genitourinary: reports: dysuria, polyuria Skin: denies: rashes, lesions Musculoskeletal: denies: pain, tenderness Neurological: denies: numbness, syncope Psychological: reports: anxiety, depression - Vital signs BP: 111/75 HR: 81 RR: 15 Tmax: 98.5 Pox: 97% on RA Wt: 81 kg - Physical Exam Constitutional: awake, alert and oriented HEENT: normocephalic and atraumatic, grossly normal vision, grossly normal hearing, oropharynx clear Neck: supple, FROM Heart: RRR, normal S1/S2, no murmurs/rubs/gallops Lungs: CTAB, no respiratory distress Abdomen: soft, bowel sounds present, no masses/distention -Abdomen: Tender to palpation in LUQ and LLQ; no rebound, guarding noted; CVA tenderness bilaterally with left greater than right Musculoskeletal: normal structure, normal tone Neurological: no focal deficit, CN II-XII intact Skin: no rash/lesions, no jaundice Heme/Lymphatic: no unusual bruising or bleeding, no purpura Psychiatric: normal mood and affect, good judgment and insight, intact recent and remote memory FMR H&P: Results - Labs Result Diagrams: 02/11/20 15:30 02/11/20 15:30 Lab results: WBC 11.6 thou/uL (4.8-10.8) H 02/11/20 15:30 Hgb 13.5 g/dL (12.0-16.0) 02/11/20 15:30 Hct 39.6 % (36.0-47.0) 02/11/20 15:30 MCV 90.1 fL (78.0-98.0) 02/11/20 15:30 Plt Count 202 thou/uL (130-400) 02/11/20 15:30 Neutrophils % 75.5 % (42.0-75.0) H 02/11/20 15:30 Sodium 135 mmol/L (136-145) L 02/11/20 15:30 Potassium 3.8 mmol/L (3.5-5.1) 02/11/20 15:30 Chloride 109 mmol/L (98-107) H 02/11/20 15:30 Carbon Dioxide 17 mmol/L (22-29) L 02/11/20 15:30 BUN 5 mg/dL (7.0-18.7) L 02/11/20 15:30 Creatinine 0.55 mg/dL (0.6-1.1) L 02/11/20 15:30 Glucose 100 mg/dL (70-105) 02/11/20 15:30 Calcium 9.0 mg/dL (7.8-10.44) 02/11/20 15:30 Total Bilirubin 0.2 mg/dL (0.2-1.2) 02/11/20 15:30 AST 13 U/L (5-34) 02/11/20 15:30 ALT 10 U/L (8-55) 02/11/20 15:30 Alkaline Phosphatase 52 U/L (40-110) 02/11/20 15:30 Serum Total Protein 6.9 g/dL (6.0-8.3) 02/11/20 15:30 Albumin 3.9 g/dL (3.5-5.0) 02/11/20 15:30 Urine Ketones Negative mg/dL (Negative) 02/11/20 15:55 Urine Blood Negative (Negative) 02/11/20 15:55 Urine Nitrite Negative (Negative) 02/11/20 15:55 Ur Leukocyte Esterase Negative Pema/uL (Negative) 02/11/20 15:55 - Radiology Interpretation US - abdomen Additional comment: sIUP in breech presentation with estimated gestational age by US 16.2 with RAMONE of 07/26/2020; estimated weight of 171 g; adnexal regions and LLQ in region of patient's pain not well assessed. CT scan - abdomen Additional comment: No evidence of acute process FMR H&P: A/P - Problem List (1) Intrauterine Current Visit: Yes Status: Acute Code(s): Z34.90 - ENCNTR FOR SUPRVSN OF NORMAL , UNSP, UNSP TRIMESTER (2) Abdominal pain Current Visit: Yes Status: Acute Code(s): R10.9 - UNSPECIFIED ABDOMINAL PAIN (3) Anxiety Current Visit: Yes Status: Chronic Code(s): F41.9 - ANXIETY DISORDER, UNSPECIFIED (4) Depression Current Visit: Yes Status: Chronic Code(s): F32.9 - MAJOR DEPRESSIVE DISORDER, SINGLE EPISODE, UNSPECIFIED - Plan 29 yo @ 16.4 wga by LMP c/w first trimester US Abdominal pain likely 2/2 to kidney stones vs. round ligament pain vs. ovarian torsion - patient received multiple medications for pain in the ED including 8mg of IV m orphine, 100mcg IV fentanyl, 8mg zofran - patient recently given fentanyl and benadryl - will continue to monitor patient's pain - if pain does not resolve, will try stadol - consider repeat US to reevaluate for ovarian torsion as first US was unable to assess left adnexa - zofran PRN sIUP - US on admission c/w RAMONE of 07/25/2020 and weight of 171 g with heart tones - continue PNV - consider starting aspirin due to reported pre-e in previous Depression/Anxiety - continue home medication of Sertraline - Atarax prn PCP: TAMP Fluids: LR @ 150 Diet: Regular PPx: SCDs Code: FULL Dispo: will admit to medical for observation; likely LOS < 48 hours FMR H&P: Upper Level - Plan Date/Time: 02/12/20 0027 ISandy, have evaluated this patient and agree with findings/plan as outlined by consultants intern resident. Pertinent changes/additions are listed here. 29YO @ 16.3 WGA by LMP c/w dating sono (5 weeks per patient) who presenting to the ED with a CC of severe LLQ pain. Report the pain is sharp in character and fluctuates in occurrence and intensity. Reports improvement with pressure over the area but no known exacerbating factors. Reports associated N/V and some slight dysuria and hematuria she noted today while wiping. No associated fever/chills or diarrhea. Has a h/o kidney stones with her last but states this pain is worse than that. On arrival to the ED her vitals were WNLs. Workup including a CBC, CMP, UA, pelvic US, & pelvic CT were unremarkable. However, after receiving 8mg of IV morphine, 100mcg IV fentanyl & 8mg of Zofran, the patient was still reported 8/10 pain and was therefore admitted for intractable abdominal pain 2/2 MSK pain vs. ovarian torsion vs. psychogenic pain. Just prior to admission, the patient was given 50mcg of fentanyl again with 25mg of Benadryl. Will assess if this regimen helps & if so will continue, if not will try stadol. Will also consider obtaining a repeat pelvic US to assess adnexal region as well since the initial sono could not evaluate it. Will continue PRN Zofran for nausea. Will continue home meds for , anxiety/depression and shingles. Addendum - Attending - Attending Attestation Date/Time: 02/12/20 0030 I personally evaluated the patient and discussed the management with Dr. Spence/Jose. I agree with the History, Examination, Assessment and Plan documented above with any addition or exceptions noted below. 29-year-old At approximate 16.3 weeks gestation based on US performed in ER who presents with a 1-2 day history of intermittent but worsening left flank and left lower quadrant pain. Patient states that she again experienced the pain yesterday but was able to sleep and noticed that it resolved. Pain returned today and became progressively more severe. Patient states she was concerned as she had a 20 week miscarriage in August of this year that started similarly. She also reports a history of kidney stones. She has had 2 prior C-sections and 2 LEEPs for CASSI-3.Patient stated pain is comparable to prior kidney stones.Patient states morphine and fentanyl have helped very little with her pain. Exam was remarkable for left lower quadrant and Left worse than right CVA tenderness. No rebound, guarding, rigidity noted.Laboratory evaluation was negative. CT abdomen with contrast was negative. Pelvic ultrasound was unremarkable and showed approximate 17 week fetus with heart tones. Adnexa were unable to be evaluated due to bowel gas. Admit for intractable abdominal pain likely secondary Nephrolithiasis. We will continue when necessary fentanyl. Will start IV fluids at 150 mL/h. Frequently reassess pain. If she continues to have pain consider repeat pelvic ultrasound to better visualize adnexa and rule out ovarian torsion. ER doctor has spoken with on-call CANNERY WORKER hospitalist per report. Observation, medical, less than 2 midnights.
[2020-02-12] MEDS ORDERED: Ondansetron ODT 4 MG TAB PO PRN (02:22)
[2020-02-12] MEDS ORDERED: Lactated Ringer's 1,000 ML IV SCH (02:22)
[2020-02-12] MEDS ORDERED: Ondansetron PF 4 MG/2 ML Vial IVP PRN (02:22)
[2020-02-12] MEDS: Butorphanol Tartrate 1 MG/ML VIAL SLOW IVP PRN ×3 (02:54→20:05)
[2020-02-12 05:59] LABS: #Lymphocytes 2.1 thou/uL (1.20-3.40); #Monocytes 0.6 thou/uL (0.11-0.59); %Basophils 0.2 % (0.0-1.0); %Eosinophils 0.2 % (0.0-10.0); %Monocytes 5.5 % (0.0-10.0); %Neutrophils 76.1 % (42.0-75.0); Hemoglobin 11.3 g/dL (12.0-16.0); Mean Corpuscular HGB CONC 33.5 g/dL (32.0-36.0); Mean Corpuscular Hemoglobin 30.5 pg (27.0-31.0); Mean Platelet Volume 8.5 fL (7.4-10.4); Platelet Count 169 thou/uL (130-400); RBC Distribution Width 12.7 % (11.5-14.5); Red Blood Cell (RBC) Count 3.71 mill/uL (4.20-5.40); White Blood Cell (WBC) Count 11.8 thou/uL (4.8-10.8)
[2020-02-12 06:15] LABS: Anion Gap 11 mmol/L (10-20); BUN (Urea Nitrogen) 4 mg/dL (7.0-18.7); Calc. Creatinine Clearance 0 mL/min (70-130); Calcium 8.4 mg/dL (7.8-10.44); Carbon Dioxide 22 mmol/L (22-29); Chloride 108 mmol/L (98-107); Estimated GFR-MDRD Greater than 90; Glucose 89 mg/dL (70-105); Potassium 3.9 mmol/L (3.5-5.1); Sodium 137 mmol/L (136-145)
--- NOTE | 2020-02-12 06:44 | PDOC.OBAPN ---
FMR OB AP PN: Sub - Interval History Hospital Day: 1 Chief Complaint: Abdominal Pain Indentification: 29 yo at 16.4 wga by LMP c/w first trimester US Interval History: Pain improved with stadol, now returning, radiates to RUQ and back FMR OB AP PN: Obj - Maternal Vital signs: BP: 127/59 HR: 81 RR: 20 Tmax: 98.4 Pox: 100% on RA Wt: 80.739 kg FMR OB AP PN: Exam - Physical Exam General: NAD, awake, alert and oriented HEENT: normocephalic and atraumatic, EOMI Heart: RRR, normal S1/S2 General: CTAB, no respiratory distress Abdomen: soft, bowel sound present, no masses Deviation from normal: LLQ tenderness over inguinal canal region Deviation from normal: L CVA tenderness, TTP over lumbar spine & L piriformis, L FABR + FMR OB AP PN: Data - Labs Lab results: Laboratory Results - last 24 hr 02/11/20 02/11/20 02/11/20 15:30 15:30 15:30 WBC 11.6 H RBC 4.39 Hgb 13.5 Hct 39.6 MCV 90.1 MCH 30.8 MCHC 34.2 RDW 12.6 Plt Count 202 MPV 8.1 Neutrophils % 75.5 H Lymphocytes % 19.8 L Monocytes % 4.0 Eosinophils % 0.3 Basophils % 0.3 Neutrophils # 8.7 H Lymphocytes # 2.3 Monocytes # 0.5 Eosinophils # 0.0 Basophils # 0.0 Sodium 135 L Potassium 3.8 Chloride 109 H Carbon Dioxide 17 L Anion Gap 13 BUN 5 L Creatinine 0.55 L Estimated GFR (MDRD) Greater than 90 Glucose 100 Calcium 9.0 Total Bilirubin 0.2 AST 13 ALT 10 Alkaline Phosphatase 52 Serum Total Protein 6.9 Albumin 3.9 Globulin 3.0 Albumin/Globulin Ratio 1.3 Total Beta HCG 78716.11 H Urine Color Urine Clarity Urine pH Ur Specific [place] Urine Protein Urine Glucose (UA) Urine Ketones Urine Blood Urine Nitrite Urine Bilirubin Urine Urobilinogen Ur Leukocyte Esterase Blood Type 02/11/20 02/11/20 02/12/20 15:55 16:27 05:44 WBC RBC Hgb Hct MCV MCH MCHC RDW Plt Count MPV Neutrophils % Lymphocytes % Monocytes % Eosinophils % Basophils % Neutrophils # Lymphocytes # Monocytes # Eosinophils # Basophils # Sodium 137 Potassium 3.9 Chloride 108 H Carbon Dioxide 22 Anion Gap 11 BUN 4 L Creatinine 0.57 L Estimated GFR (MDRD) Greater than 90 Glucose 89 Calcium 8.4 Total Bilirubin AST ALT Alkaline Phosphatase Serum Total Protein Albumin Globulin Albumin/Globulin Ratio Total Beta HCG Urine Color Colorless Urine Clarity Clear Urine pH 6.0 Ur Specific [place] 1.007 Urine Protein Negative Urine Glucose (UA) Normal Urine Ketones Negative Urine Blood Negative Urine Nitrite Negative Urine Bilirubin Negative Urine Urobilinogen Normal Ur Leukocyte Esterase Negative Blood Type A POSITIVE 02/12/20 05:44 WBC 11.8 H RBC 3.71 L Hgb 11.3 L Hct 33.7 L MCV 91.0 MCH 30.5 MCHC 33.5 RDW 12.7 Plt Count 169 MPV 8.5 Neutrophils % 76.1 H Lymphocytes % 18.0 L Monocytes % 5.5 Eosinophils % 0.2 Basophils % 0.2 Neutrophils # 9.0 H Lymphocytes # 2.1 Monocytes # 0.6 H Eosinophils # 0.0 Basophils # 0.0 Sodium Potassium Chloride Carbon Dioxide Anion Gap BUN Creatinine Estimated GFR (MDRD) Glucose Calcium Total Bilirubin AST ALT Alkaline Phosphatase Serum Total Protein Albumin Globulin Albumin/Globulin Ratio Total Beta HCG Urine Color Urine Clarity Urine pH Ur Specific [place] Urine Protein Urine Glucose (UA) Urine Ketones Urine Blood Urine Nitrite Urine Bilirubin Urine Urobilinogen Ur Leukocyte Esterase Blood Type FMR OB AP PN: A/P Discussion: Date/Time: 02/12/20 0643 29 yo @ 16.4 wga by LMP c/w first trimester US Abdominal pain likely 2/2 to muscle spasm vs kidney stones vs. round ligament pain vs. ovarian torsion - Pain control difficult to achieve on admission, appeared to resolve with Stadol - Official read for 2nd US pending - zofran PRN - based on PE in AM, concern for piriformis syndrome vs other gluteal/pelvic muscle abnormalities - Valium 5 mg for muscle relaxation - will try to have DO colleague see her to perform osteopathic maneuvers sIUP - US on admission c/w RAMONE of 07/25/2020 and weight of 171 g with heart tones - continue PNV - consider starting aspirin due to reported pre-e in previous , will hold for now Depression/Anxiety - likely contributing to pain - continue home medication of Sertraline - Atarax prn PCP: T[facility] Fluids: LR @ 150 Diet: Regular PPx: SCDs Code: FULL Dispo: will admit to medical for observation; likely LOS < 48 hours. If pain is controlled, consider d.c, otherwise, hold until pain is better controlled. This H&P was discussed with Dr. Mcallister who agree with the above documentation and plan. Addendum - Attending - Attending Attestation Date/Time: 02/12/20 1894 I personally evaluated the patient and discussed the management with Dr. Brown I agree with the History, Examination, Assessment and Plan documented above with any addition or exceptions noted below. 29 yo female at 16.4 wks by 1T laisha presented for evaluation of severe abdominal pain. RAMONE: 07/25/20 OB provider: Bishnu PCP: Ludmila Patient reports abdominal pain that started Monday night. Resolved. Returned yesterday and has worsened. Reported blood when wiping after urination on on. No return of bleeding. Reports pain as sharp. Located LLQ. Radiates to pubic bone and to left buttocks. Reports worsening with certain positions. Unable to fully stand up due to pain. No associated symptoms. States feels similar to a kidney stone she had in the past but does reports there is something that is different to this pain. No symptoms. Does have chronic constipation. No trauma. Active with exercise daily but only walks. Reports there is a pulling nature to the pain. Exam is not consistent with history. Patient reports pain in LLQ and left lower back pain associated with any area palpated. Patient also has full range of motion with distraction. All imaging and labs are negative for acute changes - sIUP: Requesting OB records from [facility]. Spoke with OB provider, newton. Informed of increase in resent stressors with nephew's last month. - HOME/MDD: On SSRI. Denies SI. - Hx of conversion d/o: Grief reacting/conversion with IUFD in August. This appears to also be a physical manifestation of her emotional pain. Will have DO come by for OMT. - MSK: Possible component of muscle spasm, particularly left psoas. Will treat with benzo, OMT, and heat therapy. - Hx of narcotic abuse: Patient has received IV narcotics. Will begin to wean. Change to less reactive narcotics. [employer]CH[employer] APPRENTICE Aware reviewed. Last narcotic Rx in August. Continue use with caution. Spoke with staff and are aware. - Late miscarriage/IUFD: By dates 21.1 wks. By [place] 18.5 wks. Will use [place] to quantify --> . Patient continues to be anxious about complications that can occur with this . Has been seen in the ER for abdominal pain 4 times this . Will continue to reassure throughout the day. Treat pain with other modalities. Need to discuss stressors. Wean IV narcotics. Hopefully d/c this afternoon. Debra
[2020-02-12 07:40] VITALS: BMI 30.5
--- NOTE | 2020-02-12 07:51 | ULT ---
PRELIMINARY REPORT/[facility]/EMERGENCY AFTER HOURS PROCEDURE EXAM: US Obstetrical, Complete >14 weeks. CLINICAL HISTORY: LLQ pain, 16 wks , no vaginal bleeding, R/O LT OV torsion TECHNIQUE: Transabdominal imaging of the maternal pelvis and a > 14 week gestation with image documentation. COMPARISON: US - OB - 09/02/2019 03:24 AM CDT FINDINGS: FETUS: There is a single living intrauterine gestation, estimated gestational age 16 weeks 4 days POSITION: position is oblique with a head to the maternal LEFT. HEART RATE: The heart rate is 153 beats per minute. PLACENTA: The placenta is located anterior. No sonographic evidence for previa or abruption. OVARIES: A RIGHT ovarian cyst measures 2.5 cm however blood flow is noted in the ovaries bilaterally. IMPRESSION: Single viable intrauterine . No acute abnormality. Specifically, there is no evidence for o varian torsion ELECTRONICALLY SIGNED BY: Delbert Peterson MD Feb 12, 2020 3:36:49 AM CDT This report is intended for review by the ordering physician only, in accordance of law. If you recei ve this report in error, please call [facility] at [phone]. FINAL REPORT EMERGENT AFTER HOURS OB ULTRASOUND: HISTORY: Left lower quadrant abdominal pain, 16 weeks , no vaginal bleeding., Rule out left ovarian to rsion. IMPRESSION: 1. Single intrauterine gestation with heart tones documented. Gestational age not determined ba sed on this limited sonogram. 2. Normal appearing bilateral ovaries with arterial flow demonstrated in each ovary on Doppler evalua tion and spectral analysis. 3. Small right ovarian cyst measuring 2.5 cm. 4. Findings are in agreement with preliminary report by [facility]. Transcribed Date/Time: 02/12/2020 7:59 AM
[2020-02-12] MEDS ORDERED: Milk Of Magnesia 30 ML UDCUP PO PRN (08:51)
[2020-02-12] MEDS ORDERED: Butorphanol Tartrate 1 MG/ML VIAL SLOW IVP PRN (08:53)
[2020-02-12] MEDS: hydrOXYzine 25 MG TAB PO PRN ×3 (09:25→22:24)
[2020-02-12] MEDS: Prenatal Vitamin 1 TAB PO SCH (09:25)
[2020-02-12] MEDS: Dicyclomine 20 MG TAB PO SCH ×4 (09:26→21:46)
[2020-02-12] MEDS: Docusate Sodium 100 MG/10 ML UDCUP PO SCH ×3 (09:29→21:47)
[2020-02-12] MEDS: Polyethylene Glycol 3350 17 GM Packet PO SCH ×3 (09:29→10:13)
[2020-02-12] MEDS ORDERED: Diazepam 5 MG TAB PO SCH (10:00)
[2020-02-12] MEDS: Acetaminophen/Codeine 30-300mg Tablet PO PRN ×2 (10:22→21:46)
[2020-02-12 12:03] LABS: SARS-CoV-2 MS2 Positive; SARS-CoV-2 N Gene Negative; SARS-CoV-2 S Gene Negative; SARS-CoV-2 by NAA Not Detected (NotDetected); SARS-CoV-2 orf1ab Negative
[2020-02-12] MEDS: Acetaminophen 500 MG TAB PO PRN (14:16)
--- NOTE | 2020-02-12 16:33 | PDOC.EVN ---
Event Note - Event Note Event Note: Called to patient's room to evaluate for ongoing pain. Patient states that she feels burning in her vagina, pressure, and the need to push. She denies contractions, vaginal bleeding, loss of fluid. She states her pain is "everywhere". She denies BM since receiving bowel regimen earlier today. She is tearful and anxious appearing. Reassured patient of negative imaging studies and reassuring status. VS reviewed and stable. She is able to ambulate to and from the restroom easily. Discussed the need to limit narcotic medication use during and we are trying to space out the doses. Offered her alternative treatments such as heating pad, ice pack, recommended attempt at bowel movement, and medication for anxiety such as hydroxyzine. She refused all of the above. When told she was not due for narcotic pain medication yet, she agreed to hydroxyzine. She insisted on calling her father in law stating that he would come up here. We encouraged her to talk with family and try to relax. Discussed case with Drs. Mcallister and Ludmila who are in agreement that narcotic pain management is not indicated at this time. Attending Note: Dr Keys accessed patient due to his relationship as PCP. During my exam and full evaluation of patient's history and medical record there does not appear to be an acute cause of her pain that would be concerning. There is no evidence of adnexal lesions. No evidence of infection. No evidence of pathology or GI pathology. Labs are WNL. There is no evidence of miscarriage/SAB. Early I was concerned pain and emotional state was multifactorial including MSK issues and stressors. Patient would benefit from family being present. But due the pandemic this is very limited. Medications have been provided to treat MSK issues as well as alternatives including OMT this afternoon. Per Dr Keys, he would like to monitor pain overnight and d/c in AM. Debra
[2020-02-12 18:43] LABS: Amphetamine Not Detected (NotDetected); Barbiturates Screen Not Detected (NotDetected); Benzodiazepine Screen Not Detected (NotDetected); Cocaine Metabolite Screen Not Detected (NotDetected); Medtox Control Line Valid? VALID (VALID); Medtox Reader # READER 4; Methadone Not Detected (NotDetected); Methamphetamine Not Detected (NotDetected); Opiate Screen Not Detected (NotDetected); Oxycodone Screen Not Detected (NotDetected); Phencyclidine (PCP) Not Detected (NotDetected); THC/Cannabinoid Screen Not Detected (NotDetected); Tricyclic Screen Not Detected (NotDetected)
[2020-02-12] MEDS ORDERED: Phenazopyridine HCl 97.5 MG TABLET PO SCH (19:00)
[2020-02-13] MEDS: Butorphanol Tartrate 1 MG/ML VIAL SLOW IVP PRN ×2 (04:09→11:16)
--- NOTE | 2020-02-13 06:02 | PDOC.OBAPN ---
FMR OB AP PN: Sub - Interval History Hospital Day: 2 Chief Complaint: Abdominal pain Indentification: 29 yo @ 16.5 wga by LMP c/w first trimester US Interval History: Pain still 12/29, reports pain in lower abdomen burning in nature. FMR OB AP PN: Obj - Maternal Vital signs: BP: 115/55 HR: 78 RR: 18 Tmax: 98.7 Pox: 9% on RA Wt: 80 kg - Urine output I&O: 02/11/20 02/12/20 02/13/20 06:59 06:59 06:59 Intake Total 932 Balance 932 FMR OB AP PN: Exam - Physical Exam General: NAD, awake, alert and oriented HEENT: normocephalic and atraumatic Neck: supple, FROM Heart: RRR, normal S1/S2 General: CTAB, no respiratory distress Abdomen: soft, bowel sound present, no masses Deviation from normal: mildly tender to palpation in suprapubic region Neurological: no focal deficit R OB AP PN: Data - Labs Lab results: Laboratory Results - last 24 hr 02/11/20 02/12/20 02/12/20 15:55 02:00 05:44 Sodium 137 Potassium 3.9 Chloride 108 H Carbon Dioxide 22 Anion Gap 11 BUN 4 L Creatinine 0.57 L Estimated GFR (MDRD) Greater than 90 Glucose 89 Calcium 8.4 Urine Opiates Screen Not Detected Ur Oxycodone Screen Not Detected Urine Methadone Screen Not Detected Ur Propoxyphene Screen Not Detected Ur Barbiturates Screen Not Detected Ur Tricyclics Screen Not Detected Ur Phencyclidine Scrn Not Detected Ur Amphetamines Screen Not Detected U Methamphetamines Scrn Not Detected U Benzodiazepines Scrn Not Detected U Cocaine Metab Screen Not Detected U Cannabinoids Screen Not Detected Drug Screen Comment SARS-CoV-2 (PCR) Not Detected R OB AP PN: A/P Discussion: Date/Time: 02/13/20 0600 29 yo @ 16.5 wga by LMP c/w first trimester US Abdominal pain likely 2/2 to muscle spasm vs. round ligament pain - Pain control difficult to achieve on admission, better control today. Patient not tearful today. Sitting up in bed with legs cross. More mobile. - pain likely contributed to muscle spasms in gluteal/pelvic region - Suprapubic pain could be 2/2 irritation/inflammation from possible interstitial cystitis. Encouraged hydration and limited provoking items. - Added oral muscle relaxer. - OMT attempted. Unable to tolerate. Needs outpt referral. sIUP - US on admission c/w RAMONE of 07/25/2020 and weight of 171 g with heart tones - continue PNV - consider starting aspirin due to reported pre-e in previous , will hold for now - Patient to follow up with OB provider next week Depression/Anxiety - likely contributing to pain - continue home medication of Sertraline - Atarax prn - Follow up closely with PCP. Needs counseling to help process feelings and emotions to limit physical manifestations. PCP: BA Fluids: SL Diet: Regular PPx: SCDs Code: FULL Dispo: will dc today This H&P was discussed with Dr. Mcallister who agree with the above documentation and plan. Addendum - Attending - Attending Attestation Date/Time: 02/13/20 [id number] I personally evaluated the patient and discussed the management with Dr. Brown I agree with the History, Examination, Assessment and Plan documented above with any addition or exceptions noted below. HD#2 Patient improved. Not tearful today. Appears calm. Sitting up in bed with legs crossed. However, once conversation begins to address pain, patient's body language and expressions change. Able to redirect and reassure. Needs follow up with PCP, OB provider, OMT and potentially Sports Meds in the next 2 wks. High risk for medication abuse due to previous history. Discussed with patient. Debra
[2020-02-13] MEDS: Acetaminophen/Codeine 30-300mg Tablet PO PRN (06:21)
[2020-02-13] MEDS: hydrOXYzine 25 MG TAB PO PRN (06:21)
[2020-02-13] MEDS ORDERED: Phenazopyridine HCl 97.5 MG TABLET PO SCH (09:00)
[2020-02-13] MEDS: Prenatal Vitamin 1 TAB PO SCH (09:37)
[2020-02-13] MEDS: Dicyclomine 20 MG TAB PO SCH (09:37)
[2020-02-13] MEDS: Polyethylene Glycol 3350 17 GM Packet PO SCH (09:37)
[2020-02-13 09:38] VITALS: BP 115/62; TEMP 98
[2020-02-13] MEDS: Docusate Sodium 100 MG/10 ML UDCUP PO SCH (09:38)
[2020-02-13] MEDS: Acetaminophen 500 MG TAB PO PRN (09:45)
--- NOTE | 2020-02-14 13:54 | DIS ---
DATE OF ADMISSION: 02/12/2020 DATE OF DISCHARGE: 02/13/2020 RESIDENT: Vasquez Brown MD ADMITTING ATTENDING: Benjy Keys MD DISCHARGE ATTENDING: Taylor Mcallister MD CONSULTATIONS: None. PROCEDURES: Patient had abdominal and pelvis CT that showed evidence of an intrauterine , otherwise no acute processes and patient had a ultrasound showing estimated gestational age of 16 weeks and two days and a single intrauterine gestation with heart rate of 144 beats per minute. Ovaries could not be adequately assessed with this procedure. Pelvis ultrasound was repeated showing no evidence of ovarian torsion. PRIMARY DIAGNOSIS: Muscle spasm. SECONDARY DIAGNOSES: 1. Anxiety. 2. Intrauterine . DISCHARGE MEDICATIONS: 1. Hydroxyzine 25 mg p.o. q.6h. 2. Acetaminophen 1000 mg p.o. q.8 hours. 3. Acetaminophen with Codeine No. 3, 300 mg/30 mg tab one tab p.o. q.6 hours p.r.n. for three days. 4. Methocarbamol 1000 mg p.o. four times daily for four days. 5. 4 mg of Zofran p.o. q.6 hours. 6. Promethazine 25 mg p.o. q.6 hours. 7. Sertraline 100 mg p.o. daily. DISCONTINUED MEDICATIONS: None. HISTORY OF PRESENT ILLNESS/HOSPITAL COURSE: Patient is a 29-year-old, G5, P2-0-2-2 who presented at 16 weeks and three days by last menstrual cycle consistent with first trimester ultrasound, who presented to the emergency room for abdominal pain. The pain had been going on for approximately one day and had been worsening. Patient was concerned due to her recent loss and wanted to be evaluated. She has noticed mild blood with wiping and reports a history of kidney stones in other pregnancies. Patient received morphine, fentanyl, and Zofran on admission. Patient received stadol, which gave patient relief of pain. During the rest of the hospital stay, opioid medication use was limited. We tried to have the patient to OMT with one of our colleagues, however, the patient was unable to tolerate the procedure. Patient reported that the pain decreased since admission. There is concern that pain is related to anxiety and depression given recent loss in August and other significant family events. Per history, the patient had similar episode with her last approximately three years ago that while undergoing significant stressors. CT abdomen and pelvis was performed as well as abdominal ultrasound as described above. Lab work was unremarkable. DISPOSITION: Stable. DISCHARGE INSTRUCTIONS: 1. Location: Home. 2. Diet: Regular, full. 3. Activity: As tolerated. 4. Followup: I told the patient to follow up with PCP as soon as possible to monitor symptoms. Also, discussed with patient possibility to see our Sports Medicine doctors to see if they would be able to perform further OMT or injections, if necessary. Job ID: [id number] MTDD
== END 2020-02-13 12:11 | disposition home or self-care (01) ==
LOC: ERS 14:59 → INTOOBSV 02-12 00:16 → 3SE 02-12 00:16
PROVIDERS: ADMIT Family Medicine; ATTEND Family Medicine
DX: O99.89 Other specified diseases and conditions complicating pregnancy, childbirth and the puerperium (principal); M62.838 Other muscle spasm; R10.32 Left lower quadrant pain; O99.342 Other mental disorders complicating pregnancy, second trimester; F41.1 Generalized anxiety disorder; F32.9 Major depressive disorder, single episode, unspecified; O99.322 Drug use complicating pregnancy, second trimester; F11.11 Opioid abuse, in remission; O32.1XX0 Maternal care for breech presentation, not applicable or unspecified; Z3A.16 16 weeks gestation of pregnancy; Z79.899 Other long term (current) drug therapy; Z20.828 Contact with and (suspected) exposure to other viral communicable diseases
CPT/HCPCS: 36415; 74177; 76815; 76856; 80048; 80053; 80306; 81003; 84702; 85025; 86900; 86901; 87635; 93976; 96361; 96374; 96375; 96376; G0378; J0595; J1200; J2060; J2270; J2405; J3010; Q9967; U0003

== ENCOUNTER 2020-05-25 16:18 | Day surgery (SDC) | payer OTHER ==
[2020-05-25 17:11] VITALS: BMI 34.0
[2020-05-25] MEDS ORDERED: hydrALAZINE 20 MG/ML VIAL SLOW IVP PRN (18:21)
[2020-05-25 18:39] LABS: FFN Internal QC Analyzer PASS (PASS); FFN Internal QC Cassette PASS (PASS); Fetal Fibronectin Negative (Negative)
--- NOTE | 2020-05-25 18:59 | PRG ---
DATE OF SERVICE: 05/25/2020 PRIMARY VENEER SHEET REPAIRER: Shey Goetz MD CHIEF COMPLAINT: Abdominal and back pain. HISTORY OF PRESENT ILLNESS: The patient is a 30-year-old, G5, P2 female with an intrauterine at 32 weeks gestation, presenting to Labor and Delivery with a two-day history of worsening lower back and abdominal pain. The patient reports that the pain is sharp and bandlike in her back and particularly in her right lower abdomen. The patient also feels tightening in her stomach, but it is more spontaneous in nature. She reports she has difficulty moving, getting out of bed, walking, lifting, ambulating. The patient has a history of a six-month demise in August of 2019 that she reports feeling some of these symptoms at that time prompting more concern. The patient two days ago had spent after cleaning the house, after the holidays has had intercourse about 2 days ago also. The patient reports she has had a headache today that she has attempted to take Tylenol without success about 3 o'clock. She reports that she stays well hydrated that she has had some fruit and a couple of pizza rolls today. The patient denies fever or cough. She has some intermittent nausea with the . Denies chest pain or shortness of breath. Had some diarrhea earlier today. Denies constipation. Denies any new rashes, hip problems, knee problems, muscle weakness. Denies vaginal bleeding. She has had increased discharge and was treated empirically with a vaginal 1-day insert a few days ago by her provider. The patient denies urinary urgency and frequency. PAST MEDICAL HISTORY: History of six-month stillbirth. PAST SURGICAL HISTORY: She has had two prior C-sections. She has also had two prior LEEP procedures. SOCIAL HISTORY: Denies drug, alcohol, tobacco use. ALLERGIES: NO KNOWN DRUG ALLERGIES. MEDICATIONS: The patient is on sertraline and vitamin. PHYSICAL EXAMINATION: VITAL SIGNS: Blood pressure 126/62, heart rate of 94, saturating 97% on room air. GENERAL: She appears to be in no acute distress. She is alert, oriented, cooperative, and pleasant to interact with. HEAD: Normocephalic and atraumatic. LUNGS: Clear to auscultation bilaterally. HEART: Regular rate and rhythm. ABDOMEN: Gravid, soft. She has some tenderness with elevation and deviation of the uterus to the patient's right. She also has some band tenderness her lower back in the region of her SI joints and upper gluteal. However, palpation does not seem to make this worse. Vulva is without masses, lesions, or erythema. Vagina is moist. She has copious amount of discharge present, white. Cervix is visible, does not appear to have any erythema or lesions. fibronectin was collected as well as VP3. On digital exam, cervix is closed but soft. No palpable presenting part through the vaginal wall. heart tracing shows the fetus with a baseline in the 130s with moderate long-term variability, positive 15 x 15 accelerations, no decelerations. No contractions are visible on the monitor. fibronectin and VP3 are both pending. Urinalysis is ordered. During exam, the patient had a very difficult time due to sharp pain to move her body down while lying. She also had quite a bit of sharp pain during the vaginal exam. ASSESSMENT AND PLAN: The patient is a 30-year-old multiparous female with an intrauterine at 32 weeks. She has no evidence of labor at this time. However, given her constellation of symptoms and her history, we did collect a fibronectin. If it does come back positive, we will do a cervical length to see if she warrants any empiric treatment with steroids. The VP3 and the urinalysis and fibronectin should all be coming back here in the next hour and we will treat appropriately. Fetus has a category 1 tracing and reactive NST. Anticipate discharge home once results are available. all testing was neg-pt discharged home with reassurance. Job ID: [id number] MTDD
[2020-05-25] MEDS ORDERED: Fioricet 325/50/40 mg Tablet PO SCH (19:00)
[2020-05-25 19:11] LABS: Bacteria/HPF None Seen HPF (None Seen); Bilirubin Negative (Negative); Blood, Urine Negative (Negative); Clarity Clear (Clear); Glucose, Urine (Dipstick) Normal (Negative); Ketone, Urine Negative (Negative); Leukocyte Negative Leu/uL (Negative); Nitrite Negative (Negative); Protein, Urine (Dipstick) Negative (Neg-Trace); RBC/HPF None Seen HPF (0-3); Specific Gravity, Urine 1.013 (1.002-1.036); Squamous Epithelial 0-3 HPF (0-3); Urobilinogen Normal mg/dL (Less than 2); WBC/HPF 0-3 HPF (0-3); pH, Urine 6.5 (5.0-9.0)
[2020-05-26] MEDS ORDERED: FLU VACC QS2020-21(6MOS UP)/PF 60 MCG/0.5 ML SYRINGE IM ONE (09:00)
== END 2020-05-25 19:55 | disposition home health service (06) ==
LOC: L&D/OP 16:18
PROVIDERS: ATTEND Student in an Organized Health Care Education/Training Program
DX: O99.891 Other specified diseases and conditions complicating pregnancy (principal); R10.31 Right lower quadrant pain; M54.5 Low back pain; O09.293 Supervision of pregnancy with other poor reproductive or obstetric history, third trimester; O34.219 Maternal care for unspecified type scar from previous cesarean delivery; Z79.899 Other long term (current) drug therapy; Z3A.32 32 weeks gestation of pregnancy
CPT/HCPCS: 81001; 82731; 87480; 87510; 87660; 99284

== ENCOUNTER 2020-06-12 14:13 | Day surgery (SDC) | payer OTHER ==
[2020-06-12 15:00] VITALS: BP 120/70; BMI 34.3
[2020-06-12] MEDS ORDERED: Morphine 10 MG/ML VIAL SLOW IVP SCH (15:45)
[2020-06-12] MEDS ORDERED: Promethazine HCl 25 MG/ML VIAL IM SCH (15:45)
[2020-06-12] MEDS ORDERED: Morphine 4 MG/ML VIAL IM SCH (15:45)
[2020-06-12 15:59] LABS: Hemoglobin 10.8 g/dL (12.0-16.0); Mean Corpuscular Hemoglobin 30.1 pg (27.0-31.0); Mean Corpuscular Volume 88.5 fL (78.0-98.0); Mean Platelet Volume 7.9 fL (7.4-10.4); Platelet Count 151 thou/uL (130-400); RBC Distribution Width 14.1 % (11.5-14.5); Red Blood Cell (RBC) Count 3.57 mill/uL (4.20-5.40); White Blood Cell (WBC) Count 11.3 thou/uL (4.8-10.8)
[2020-06-12] MEDS ORDERED: Lactated Ringer's 1,000 ML IV SCH ×2 (16:00)
[2020-06-12 16:05] LABS: INR-International Normal Ratio 1.1; PTT 25.7 sec (22.9-36.1); Prothrombin Time 14.2 sec (12.0-14.7)
[2020-06-12 16:12] LABS: Bilirubin Negative (Negative); Blood, Urine Negative (Negative); Clarity Clear (Clear); Glucose, Urine (Dipstick) Normal (Negative); Ketone, Urine Negative (Negative); Leukocyte Negative Leu/uL (Negative); Nitrite Negative (Negative); Protein, Urine (Dipstick) Negative (Neg-Trace); RBC/HPF 0-3 HPF (0-3); Specific Gravity, Urine 1.014 (1.002-1.036); Urobilinogen Normal mg/dL (Less than 2); WBC/HPF 0-3 HPF (0-3)
[2020-06-12 16:16] LABS: Bacteria/HPF 1+ HPF (None Seen)
--- NOTE | 2020-06-12 17:18 | ULT ---
Obstetric sonogram Limited HISTORY: Pelvic pain. FINDINGS: Single intrauterine gestation in cephalic presentation. Grade 1 placenta is anterior. No ev idence of placenta previa or abruption. Advanced age limits anatomic detail. Heart motion at 125 bpm. Cervix is closed and 4.7 cm. Amniotic fluid index 9.8. IMPRESSION : Cephalic presentation. No abnormalities are demonstrated
[2020-06-12] MEDS ORDERED: hydrALAZINE 20 MG/ML VIAL SLOW IVP PRN (19:48)
[2020-06-12] MEDS ORDERED: Acetaminophen/Codeine 30-300mg Tablet PO SCH (20:00)
--- NOTE | 2020-06-13 09:43 | HP ---
PRIMARY OB: Shey Goetz MD CHIEF COMPLAINT: Abdominal and back pain. HISTORY OF PRESENT ILLNESS: The patient is a 30-year-old female with a several week history of pelvic pain with worsening over the last 24 hours. Given the change in her pain, the patient came in for evaluation concerned that something may be going wrong. The patient reports the pain is primarily in her back, lower back and tends to a wrap around and tends to radiate down into her thighs. She reports two pains, one is constant, it is consistent with the pain she has had over the last several weeks, making it very difficult to move and walk, to lift her legs. She did see a chiropractor couple days ago that she feels made things worse. The other pain she feels is bandlike and feels like menstrual cramps. This pain is inconsistent, but the one is present worsens the other pain. She denies any vaginal bleeding or leakage of fluid. She denies urinary urgency or frequency. She denies headache, chest pain, shortness of breath, fever, diarrhea, constipation, any new rashes, hip problems, knee problems or muscle weakness. The patient reports that she had a little bit of bleeding today prior to arrival. PAST MEDICAL HISTORY: Significant for history of alcohol abuse, alcohol dependency and has been sober for 6 years and actively participates in an outpatient treatment plan with a sponsor. PAST SURGICAL HISTORY: She has had 2 prior C-sections and 2 LEEP procedures. OB HISTORY: She had a 6 month stillbirth about a year ago. SOCIAL HISTORY: Denies any current drug, alcohol or tobacco use. ALLERGIES: NO KNOWN DRUG ALLERGIES. MEDICATIONS: 1. Sertraline. 2. vitamins. OB LABS: Unavailable at time of dictation. REVIEW OF SYSTEMS: Per HPI. PHYSICAL EXAMINATION: VITAL SIGNS: Blood pressure 120/70, heart rate of 110s, saturating 95% to 97% on room air. GENERAL: She appears to be in quite a bit of distress on arrival with the appearance that she may be in labor. She is alert, oriented, cooperative, and pleasant to interact with. HEAD: Normocephalic, atraumatic. LUNGS: Clear to auscultation bilaterally. HEART: Regular rate and rhythm. ABDOMEN: Tender. She has a little bit of fundal tenderness and lower abdominal tenderness. She is exquisitely tender in her presacral area, in her upper gluteal region. Perineum is without masses, lesions, or erythema. Vagina is moist. There is no significant discharge or leakage of fluid or vaginal bleeding. CERVIX: On exam, is closed, thick and feels unlabored. heart tracing shows the fetus with baseline in the 150s with moderate long-term variability, positive 15 x 15 accelerations, no decelerations. The tocometer shows some irritability, but not consistent and certainly not felt by the patient consistently. ultrasound shows fetus in vertex presentation. Grade 1 placenta. No evidence of previa or abruption. Amniotic fluid index of 9.8. LABORATORY DATA: White count of 11.3, hemoglobin 10.8, hematocrit 31.6, and platelets of 151,000. Fibrinogen of 554, INR of 1.1, PTT of 25.7, PT of 14.2. Urine negative for leukocyte esterase, negative for white blood cells, nitrites, ketones, and protein. ASSESSMENT AND PLAN: Over the course of her stay, it became more and more apparent that the patient's primary source of her pain is musculoskeletal pain, it seems to be quite intense for her. We did spend about 20 minutes discussing other things happening in her life. She reports good home environment. Denies abuse. Denies over worry or stress. She denies any excessive concern about the status of the and denies that her recent 6 month stillbirth has any impact on her concerns with this . We did spend about 30 minutes going through various stretches and showed her areas that may aid her with some massage and stretching. We did encourage some simple muscle strengthening exercises and believe the combination of the things may give her some benefit in the machine long goods helper. The patient was given a dose of 10 mg of morphine and 25 of Phenergan while she was here and was sent home several hours later with 2 of Tylenol 3 p.o. The patient declined any pain medication at home. She and her had agreed to attempt various stretching and strengthening exercises as tolerated, and the patient has to follow up with her primary OB, Dr. Shey Goetz next week. Job ID: [id number]
== END 2020-06-12 20:35 | disposition home or self-care (01) ==
LOC: L&D/OP 14:13
PROVIDERS: ATTEND Student in an Organized Health Care Education/Training Program
DX: O99.891 Other specified diseases and conditions complicating pregnancy (principal); M54.5 Low back pain; R10.2 Pelvic and perineal pain; O46.90 Antepartum hemorrhage, unspecified, unspecified trimester; O34.219 Maternal care for unspecified type scar from previous cesarean delivery; O09.299 Supervision of pregnancy with other poor reproductive or obstetric history, unspecified trimester; Z3A.00 Weeks of gestation of pregnancy not specified
CPT/HCPCS: 36415; 76815; 81001; 85027; 85384; 85610; 85730; 87480; 87510; 87660; 96360; 96361; 96372; 99285; J2270; J2550

== ENCOUNTER 2020-07-16 08:12 | Outpatient (CLI) | payer OTHER ==
[2020-07-16 17:25] LABS: SARS-CoV-2 PCR by NAA Not Detected (NotDetected)
== END 2020-07-16 08:13 | disposition home or self-care (01) ==
LOC: LABBT 08:12
PROVIDERS: ATTEND Student in an Organized Health Care Education/Training Program
DX: Z01.812 Encounter for preprocedural laboratory examination (principal); Z20.822 Contact with and (suspected) exposure to COVID-19
CPT/HCPCS: 87635; U0003; U0005

== ENCOUNTER 2021-01-07 14:26 | Emergency (ER) | payer OTHER ==
[2021-01-07 15:50] LABS: #Basophils 0.1 thou/uL (0.0-0.2); #Eosinphils 0.1 thou/uL (0.0-0.7); #Lymphocytes 2.4 thou/uL (1.20-3.40); #Monocytes 0.5 thou/uL (0.11-0.59); #Neutrophils 4.2 thou/uL (1.40-6.50); %Basophils 0.8 % (0.0-1.0); %Eosinophils 1.1 % (0.0-10.0); %Lymphocytes 33.1 % (21.0-51.0); %Monocytes 6.7 % (0.0-10.0); %Neutrophils 58.3 % (42.0-75.0); Hemoglobin 14.2 g/dL (12.0-16.0); Mean Corpuscular HGB CONC 34.9 g/dL (32.0-36.0); Mean Corpuscular Hemoglobin 31.2 pg (27.0-31.0); Mean Corpuscular Volume 89.6 fL (78.0-98.0); Mean Platelet Volume 8.3 fL (7.4-10.4); Platelet Count 200 thou/uL (130-400); RBC Distribution Width 10.9 % (11.5-14.5); Red Blood Cell (RBC) Count 4.54 mill/uL (4.20-5.40); White Blood Cell (WBC) Count 7.3 thou/uL (4.8-10.8)
[2021-01-07 16:13] LABS: ALT (SGPT) 19 U/L (8-55); AST (SGOT) 22 U/L (5-34); Albumin 4.3 g/dL (3.5-5.0); Alkaline Phosphatase 86 U/L (40-110); Anion Gap 12 mmol/L (10-20); BUN (Urea Nitrogen) 10 mg/dL (7.0-18.7); Bilirubin, Total Less than 0.2 mg/dL (0.2-1.2); Calc. Creatinine Clearance 0 mL/min (70-130); Calcium 9.3 mg/dL (7.8-10.44); Carbon Dioxide 21 mmol/L (22-29); Chloride 110 mmol/L (98-107); Glucose 105 mg/dL (70-105); Potassium 4.6 mmol/L (3.5-5.1); Protein, Total 7.3 g/dL (6.0-8.3); Sodium 138 mmol/L (136-145)
[2021-01-07] MEDS ORDERED: Morphine 4 MG/ML VIAL ONE (16:30)
[2021-01-07] MEDS ORDERED: Ondansetron PF 4 MG/2 ML Vial ONE (16:30)
[2021-01-07] MEDS ORDERED: Ketorolac Tromethamine 30 MG/ML VIAL ONE (16:30)
[2021-01-07 17:05] LABS: Bilirubin Negative (Negative); Blood, Urine Negative (Negative); Clarity Clear (Clear); Glucose, Urine (Dipstick) Normal (Negative); Ketone, Urine Negative (Negative); Leukocyte Negative Leu/uL (Negative); Nitrite Negative (Negative); Protein, Urine (Dipstick) Negative (Neg-Trace); Specific Gravity, Urine 1.017 (1.002-1.036); Urobilinogen Normal mg/dL (Less than 2); pH, Urine 7.5 (5.0-9.0)
[2021-01-07 17:08] LABS: Pregnancy Test - Urine (BHCG) Negative (Negative); Pregu Control Background? CLEAR/WHITE (CLR/WHITE); Pregu Control Bar Appear? YES (CONTROL BAR); Specific Gravity 1.017 (1.002-1.036)
[2021-01-07 17:13] LABS: Amphetamine Not Detected (NotDetected); Barbiturates Screen Detected (NotDetected); Benzodiazepine Screen Detected (NotDetected); Cocaine Metabolite Screen Not Detected (NotDetected); Methadone Not Detected (NotDetected); Methamphetamine Not Detected (NotDetected); Opiate Screen Not Detected (NotDetected); Oxycodone Screen Not Detected (NotDetected); Phencyclidine (PCP) Not Detected (NotDetected); THC/Cannabinoid Screen Not Detected (NotDetected); Tricyclic Screen Not Detected (NotDetected)
[2021-01-07] MEDS ORDERED: HYDROcodone/Acetaminophen 5/325 mg Tablet ONE (19:05)
[2021-01-07 23:42] LABS: SARS-CoV-2 PCR by NAA Not Detected (NotDetected)
== END 2021-01-07 19:04 | disposition home or self-care (01) ==
LOC: ERS 14:26
DX: K03.81 Cracked tooth (principal); M79.10 Myalgia, unspecified site; R00.0 Tachycardia, unspecified; R50.9 Fever, unspecified; R53.83 Other fatigue; Z20.822 Contact with and (suspected) exposure to COVID-19; Z87.891 Personal history of nicotine dependence
CPT/HCPCS: 36415; 80053; 80306; 81003; 81025; 85025; 96374; 96375; J1885; J2270; J2405; U0003; U0005

== ENCOUNTER 2021-06-04 20:16 | Emergency (ER) | payer OTHER ==
[2021-06-04 20:44] LABS: #Basophils 0.1 thou/uL (0.0-0.2); #Lymphocytes 3.3 thou/uL (1.20-3.40); #Monocytes 0.3 thou/uL (0.11-0.59); #Neutrophils 3.3 thou/uL (1.40-6.50); %Basophils 0.8 % (0.0-1.0); %Eosinophils 0.6 % (0.0-10.0); %Lymphocytes 46.5 % (21.0-51.0); %Monocytes 4.9 % (0.0-10.0); %Neutrophils 47.1 % (42.0-75.0); Mean Corpuscular HGB CONC 33.1 g/dL (32.0-36.0); Mean Corpuscular Hemoglobin 29.7 pg (27.0-31.0); Mean Corpuscular Volume 89.5 fL (78.0-98.0); Mean Platelet Volume 7.8 fL (7.4-10.4); Platelet Count 221 thou/uL (130-400); RBC Distribution Width 11.7 % (11.5-14.5); Red Blood Cell (RBC) Count 4.37 mill/uL (4.20-5.40)
[2021-06-04] MEDS ORDERED: Morphine 4 MG/ML VIAL ONE ×2 (21:10→22:00)
[2021-06-04] MEDS ORDERED: Ondansetron PF 4 MG/2 ML Vial ONE (21:10)
[2021-06-04 21:39] LABS: Bilirubin Negative (Negative); Blood, Urine Negative (Negative); Clarity Clear (Clear); Glucose, Urine (Dipstick) Normal (Negative); Ketone, Urine Negative (Negative); Leukocyte Negative Leu/uL (Negative); Nitrite Negative (Negative); Protein, Urine (Dipstick) Negative (Neg-Trace); Specific Gravity, Urine 1.002 (1.002-1.036); Urobilinogen Normal mg/dL (Less than 2)
[2021-06-04] MEDS ORDERED: Fentanyl 100 MCG/2 ML VIAL ONE (22:29)
== END 2021-06-04 23:07 | disposition home or self-care (01) ==
LOC: ERS 20:16
DX: O20.0 Threatened abortion (principal); Z87.891 Personal history of nicotine dependence; Z79.899 Other long term (current) drug therapy; Z3A.01 Less than 8 weeks gestation of pregnancy
CPT/HCPCS: 36415; 76856; 81003; 84702; 85025; 86900; 86901; 96374; 96375; 96376; J2270; J2405; J3010

== ENCOUNTER 2022-05-09 11:33 | Emergency (ER) | payer OTHER | END 2022-05-09 13:46 | disposition home or self-care (01) | LOC: ERS 11:33 | DX: J06.9 Acute upper respiratory infection, unspecified (principal); Z20.822 Contact with and (suspected) exposure to COVID-19; Z87.891 Personal history of nicotine dependence | CPT/HCPCS: 87804; 99283; U0003; U0005 ==

== ENCOUNTER 2022-05-11 17:52 | Emergency (ER) | payer OTHER ==
[2022-05-11] MEDS ORDERED: Ketorolac Tromethamine 30 MG/ML VIAL ONE (18:19)
== END 2022-05-11 19:15 | disposition home or self-care (01) ==
LOC: ERS 17:52
DX: J06.9 Acute upper respiratory infection, unspecified (principal); Z87.891 Personal history of nicotine dependence
CPT/HCPCS: 71045; J1885

== ENCOUNTER 2022-08-18 10:23 | Emergency (ER) | payer OTHER ==
[2022-08-18] MEDS ORDERED: Ketorolac Tromethamine 30 MG/ML VIAL ONE (12:13)
[2022-08-18 12:26] LABS: #Lymphocytes 1.4 thou/uL (1.20-3.40); #Monocytes 0.3 thou/uL (0.11-0.59); #Neutrophils 2.6 thou/uL (1.40-6.50); %Basophils 0.5 % (0.0-1.0); %Eosinophils 0.8 % (0.0-10.0); %Lymphocytes 31.8 % (21.0-51.0); %Monocytes 7.5 % (0.0-10.0); %Neutrophils 59.5 % (42.0-75.0); Mean Corpuscular HGB CONC 32.7 g/dL (32.0-36.0); Mean Corpuscular Hemoglobin 29.8 pg (27.0-31.0); Mean Corpuscular Volume 91.4 fl (78.0-98.0); Mean Platelet Volume 8.1 fL (7.4-10.4); Platelet Count 176 10x3/uL (130-400); RBC Distribution Width 11.8 % (11.5-14.5); Red Blood Cell (RBC) Count 4.69 mill/uL (4.20-5.40); White Blood Cell (WBC) Count 4.4 10x3/uL (4.8-10.8)
[2022-08-18 12:41] LABS: BHCG - Serum Negative (NEGATIVE); Pregs Control Background? CLEAR/WHITE (CLR/WHITE); Pregs Control Bar Appear? YES (CONTROL BAR)
[2022-08-18 12:52] LABS: ALT (SGPT) 19 U/L (8-55); AST (SGOT) 21 U/L (5-34); Albumin 4.5 g/dL (3.5-5.0); Alkaline Phosphatase 79 U/L (40-110); Anion Gap 13 mmol/L (10-20); BUN (Urea Nitrogen) 8 mg/dL (7.0-18.7); Bilirubin, Total 0.2 mg/dL (0.2-1.2); CK (CPK) 128 U/L (29-168); Calc. Creatinine Clearance 0 mL/min (70-130); Calcium 9.2 mg/dL (7.8-10.44); Carbon Dioxide 20 mmol/L (22-29); Chloride 110 mmol/L (98-107); Estimated GFR 118; Globulin 2.8 g/dL (2.4-3.5); Glucose 101 mg/dL (70-105); Potassium 3.8 mmol/L (3.5-5.1); Protein, Total 7.3 g/dL (6.0-8.3); Sodium 139 mmol/L (136-145)
[2022-08-18 13:22] LABS: SARS-CoV-2 NAA Rapid Test Not Detected (NotDetected)
[2022-08-18] MEDS ORDERED: fentaNYL 50 mcg/mL 1 mL Vial ONE (13:45)
[2022-08-18] MEDS ORDERED: Metoclopramide HCl 10 MG/2 ML VIAL ONE (13:45)
[2022-08-18] MEDS ORDERED: Dexamethasone 10 MG/ML VIAL ONE (13:46)
== END 2022-08-18 13:28 | disposition home or self-care (01) ==
LOC: ERS 10:23
DX: R05.9 Cough, unspecified (principal); B34.9 Viral infection, unspecified; D72.819 Decreased white blood cell count, unspecified; Z20.822 Contact with and (suspected) exposure to COVID-19
CPT/HCPCS: 36415; 71045; 80053; 82550; 84703; 85025; 96361; 96365; 96375; J1100; J1885; J2765; J3010

== ENCOUNTER 2023-06-16 17:46 | Emergency (ER) | payer OTHER, SELFPAY ==
[2023-06-16] MEDS ORDERED: HYDROcodone/Acetaminophen 5/325 mg Tablet ONE (19:24)
== END 2023-06-16 19:41 | disposition home or self-care (01) ==
LOC: ERS 17:46
DX: K02.9 Dental caries, unspecified (principal); I10 Essential (primary) hypertension; Z79.899 Other long term (current) drug therapy
CPT/HCPCS: 99282

== ENCOUNTER 2023-07-09 14:12 | Emergency (ER) | payer OTHER, SELFPAY | END 2023-07-09 16:52 | disposition home or self-care (01) | LOC: ERS 14:12 | DX: K08.89 Other specified disorders of teeth and supporting structures (principal); I10 Essential (primary) hypertension | CPT/HCPCS: 99282 ==

== ENCOUNTER 2024-03-10 13:28 | Emergency (ER) | payer OTHER, SELFPAY ==
[~2024-03-10 13:28] MED LIST changes: -Iopamidol-370 76% 500 ML 1 ML ONE; +Iopamidol-370 76% 500 ML MDV (1 ML CHARGE) ONE
[2024-03-10 14:00] LABS: #Basophils Less than 0.03 10x3/uL (0.0-0.2); #Eosinophils Less than 0.03 10x3/uL (0.0-0.7); %Basophils 0.2 % (0.0-1.0); %Eosinophils 0.2 % (0.0-10.0); %Monocytes 6.1 % (0.0-10.0); %Neutrophils 85.2 % (42.0-75.0); Hemoglobin 13.9 g/dL (12.0-16.0); Mean Corpuscular HGB CONC 33.1 g/dL (32.0-36.0); Mean Corpuscular Hemoglobin 30.3 pg (27.0-31.0); Mean Corpuscular Volume 91.7 fL (78.0-98.0); Mean Platelet Volume 10.5 fL (7.4-10.4); Platelet Count 189 10x3/uL (130-400); RBC Distribution Width 12.2 % (11.5-14.5); Red Blood Cell (RBC) Count 4.58 mill/uL (4.20-5.40)
[2024-03-10 14:09] LABS: BHCG - Serum Negative (NEGATIVE); Pregs Control Background? CLEAR/WHITE (CLR/WHITE); Pregs Control Bar Appear? YES (CONTROL BAR)
[2024-03-10 14:18] LABS: ALT (SGPT) 14 U/L (8-55); AST (SGOT) 18 U/L (5-34); Albumin 3.9 g/dL (3.5-5.0); Alkaline Phosphatase 54 U/L (40-110); Anion Gap 13 mmol/L (10-20); BUN (Urea Nitrogen) 9 mg/dL (7.0-18.7); Bilirubin, Total 0.4 mg/dL (0.2-1.2); Calc. Creatinine Clearance 0 mL/min (70-130); Calcium 8.6 mg/dL (7.8-10.44); Carbon Dioxide 25 mmol/L (22-29); Chloride 105 mmol/L (98-107); Estimated GFR 119; Globulin 3.1 g/dL (2.4-3.5); Glucose 106 mg/dL (70-105); Lipase 17 U/L (8-78); Potassium 3.6 mmol/L (3.5-5.1); Sodium 139 mmol/L (136-145)
[2024-03-10 14:52] LABS: Bacteria/HPF None Seen HPF (None Seen); Bilirubin Negative (Negative); Blood, Urine Negative (Negative); CAUTI Indications for Culture Pelvic or flank pain; Clarity Clear (Clear); Glucose, Urine (Dipstick) Normal (Negative); Ketone, Urine Negative (Negative); Leukocyte Negative Leu/uL (Negative); Nitrite Negative (Negative); Protein, Urine (Dipstick) Negative (Neg-Trace); RBC/HPF 0-3 HPF (0-3); Specific Gravity, Urine 1.003 (1.002-1.036); Squamous Epithelial 0-3 HPF (0-3); Urobilinogen Normal mg/dL (Less than 2); WBC/HPF 0-3 HPF (0-3)
[2024-03-10 15:05] LABS: Urine Culture Reflex No No
[2024-03-10] MEDS ORDERED: Ketorolac Tromethamine 30 MG (1 mL) VIAL ONE (15:07)
[2024-03-10] MEDS ORDERED: Ondansetron PF 4 MG/2 ML Vial ONE (15:33)
== END 2024-03-10 16:13 | disposition home or self-care (01) ==
LOC: ERS 13:28
DX: R10.32 Left lower quadrant pain (principal); M54.50 Low back pain, unspecified; I10 Essential (primary) hypertension
CPT/HCPCS: 36415; 74177; 80053; 81001; 83605; 83690; 84703; 85025; 96374; 96375; J1885; J2405; Q9967